=== PATIENT | female | born 1980 | race Hispanic/Latino ===

== ENCOUNTER 2017-12-09 20:36 | Emergency (ER) | payer OTHER ==
[2017-12-09] MEDS ORDERED: AZITHROMYCIN 250 MG TAB ONE (21:19)
--- NOTE | 2017-12-09 21:44 | ER ---
Nurse's Notes [facility] Name: Nyasia Houser Age: 37 yrs Sex: Female : 1980 Arrival Date: 12/09/2017 Time: 20:38 Bed 20 Private MD: Diagnosis: Acute pharyngitis Presentation: 12/09 20:41 Presenting complaint: Mother states: Sore throat for 2 days, daughter dx with strep la1 yesterday. Transition of care: patient was not received from another setting of care. Onset of symptoms was December 09, 2017. Initial Sepsis Screen: Does the patient meet any 2 criteria? No. Patient's initial sepsis screen is negative. Does the patient have a suspected source of infection? No. Patient's initial sepsis screen is negative. Care prior to arrival: None. 20:41 Method Of Arrival: Ambulatory la1 20:41 Acuity: MELISSA 4 la1 MARKER MACHINE: 20:42 LMP N/A - control method la1 Historical: - Allergies: 20:42 Codeine; la1 - PMHx: 20:42 fatty liver; shingles; la1 - Immunization history:: Adult Immunizations up to date. - Social history:: Smoking status: Patient/guardian denies using tobacco. Screenin:08 Abuse screen: Denies threats or abuse. Nutritional screening: No deficits noted. ea Tuberculosis screening: No symptoms or risk factors identified. Fall Risk None identified. Assessment: 20:50 General: Appears uncomfortable, Behavior is calm, cooperative, appropriate for age. ea Pain: Complains of pain in throat Pain currently is 8 out of 10 on a pain scale. Quality of pain is described as sore. Neuro: Level of Consciousness is awake, alert, obeys commands, Oriented to person, place, time, situation. Cardiovascular: Patient's skin is warm and dry. Respiratory: Airway is patent Respiratory effort is even, unlabored, Respiratory pattern is regular, symmetrical, Breath sounds are clear bilaterally. Parent/caregiver reports the patient having cough that is dry, hacking, persistent. GI: No signs and/or symptoms were reported involving the gastrointestinal system. Abdomen is non-distended, Bowel sounds present X 4 quads. GI: Reports nausea. : No signs and/or symptoms were reported regarding the genitourinary system. EENT: Throat is reddened. Derm: Skin is dry, Skin is normal, Skin temperature is warm. 21:55 Reassessment: Patient and/or family updated on plan of care and expected duration. Pain ea level reassessed. Patient is alert, oriented x 3, equal unlabored respirations, skin warm/dry/pink. Discharge instruction given to patient, verbalized the understanding of instruction. Vital Signs: 20:42 BP 128 / 90; Pulse 72; Resp 19; Temp 98.2(O); Pulse Ox 100% on R/A; Weight 95.25 kg; la1 Height 5 ft. 3 in. (160.02 cm); 20:54 BP 123 / 66; Pulse 79; Resp 18 S; Pulse Ox 98% on R/A; ea 21:55 BP 130 / 60; Pulse 80; Resp 18 S; Temp 98.0(O); Pulse Ox 100% ; ea 20:42 Body Mass Index 37.20 (95.25 kg, 160.02 cm) la1 ED Course: 20:38 Patient arrived in ED. ds1 20:41 Triage completed. la1 20:42 Arm band placed on left wrist. la1 20:48 [facility]adi Dupree [facility]-C [facility]. snw 20:48 Ricky Ames MD is Attending Physician. snw 20:53 Michelle Saxena RN is Primary Nurse. ea 21:08 Patient has correct armband on for positive identification. Bed in low position. Call ea light in reach. Side rails up X 1. 21:55 No provider procedures requiring assistance completed. Patient did not have IV access ea during this emergency room visit. Administered Medications: 21:24 Drug: Zithromax 500 mg Route: PO; ea 21:50 Follow up: Response: No adverse reaction ea Outcome: 21:43 Discharge ordered by MD. snw 21:55 Discharged to home ambulatory, with family. ea 21:55 Condition: improved 21:55 Discharge instructions given to patient, Instructed on discharge instructions, follow up and referral plans. medication usage, Demonstrated understanding of instructions, follow-up care, medications, Prescriptions given X 2. 21:59 Patient left the ED. ea Signatures: Yadi Dupree FNP-C CIVIL RIGHTS REPRESENTATIVE-Delores Hong ds1 Kyle Weaver RN RN phil1 Saxena, Michelle, RN RN ea Corrections: (The following items were deleted from the chart) 21:08 20:50 Respiratory: Airway is patent Respiratory effort is even, unlabored, Respiratory ea pattern is regular, symmetrical, Breath sounds are clear bilaterally. ea 22:32 22:31 Patient left the ED. julio ea
--- NOTE | 2017-12-09 21:44 | EDPHYS ---
Physician Documentation [facility] Name: Nyasia Houser Age: 37 yrs Sex: Female : 1980 Arrival Date: 12/09/2017 Time: 20:38 Bed 20 Private MD: ED Physician Ricky Ames HPI: 12/09 21:06 This 37 yrs old Female presents to ER via Ambulatory with complaints of Sore snw Throat. 21:06 The patient presents with sore throat. The patient describes throat pain as dry, raw. snw Onset: The symptoms/episode began/occurred 4 day(s) ago, and became worse and became persistent. Modifying factors: The symptoms are alleviated by nothing. Associated signs and symptoms: Pertinent positives: cough. The patient has not experienced similar symptoms in the past, but family has similar symptoms, daughter. The patient has not recently seen a physician. Daughter seen yesterday (by me) + for strep pharyngitis. 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 - Social history:: Smoking status: Patient/guardian denies using tobacco. ROS: 21:05 Constitutional: Negative for fever, chills, and weight loss, Eyes: Negative for injury, snw pain, redness, and discharge, Neck: Negative for injury, pain, and swelling, Cardiovascular: Negative for chest pain, palpitations, and edema, Respiratory: Negative for shortness of breath, wheezing, and pleuritic chest pain, + cough Abdomen/GI: Negative for abdominal pain, nausea, vomiting, diarrhea, and constipation, Back: Negative for injury and pain, : Negative for injury, bleeding, discharge, and swelling, MS/Extremity: Negative for injury and deformity, Skin: Negative for injury, rash, and discoloration, Neuro: Negative for headache, weakness, numbness, tingling, and seizure. 21:05 ENT: Positive for sore throat. Exam: 21:05 Constitutional: This is a well developed, well nourished patient who is awake, alert, snw and in no acute distress. Head/Face: Normocephalic, atraumatic. Neck: Trachea midline, no thyromegaly or masses palpated, and no cervical lymphadenopathy. Supple, full range of motion without nuchal rigidity, or vertebral point tenderness. No Meningismus. Chest/axilla: Normal chest wall appearance and motion. Nontender with no deformity. No lesions are appreciated. Cardiovascular: Regular rate and rhythm with a normal S1 and S2. No gallops, murmurs, or rubs. Normal PMI, no JVD. No pulse deficits. Respiratory: Lungs have equal breath sounds bilaterally, clear to auscultation and percussion. No rales, rhonchi or wheezes noted. No increased work of breathing, no retractions or nasal flaring. Abdomen/GI: Soft, non-tender, with normal bowel sounds. No distension or tympany. No guarding or rebound. No evidence of tenderness throughout. Back: No spinal tenderness. No costovertebral tenderness. Full range of motion. Skin: Warm, dry with normal turgor. Normal color with no rashes, no lesions, and no evidence of cellulitis. MS/ Extremity: Pulses equal, no cyanosis. Neurovascular intact. Full, normal range of motion. Neuro: Awake and alert, GCS 15, oriented to person, place, time, and situation. Cranial nerves II-XII grossly intact. Motor strength 5/5 in all extremities. Sensory grossly intact. Cerebellar exam normal. Normal gait. 21:05 Eyes: Conjunctiva: tearing noted, bilaterally. 21:05 ENT: External ear(s): are unremarkable, Nose: is normal, Mouth: is normal, Posterior pharynx: erythema, that is mild, Voice: is hoarse. Vital Signs: 20:42 BP 128 / 90; Pulse 72; Resp 19; Temp 98.2(O); Pulse Ox 100% on R/A; Weight 95.25 kg; la1 Height 5 ft. 3 in. (160.02 cm); 20:54 BP 123 / 66; Pulse 79; Resp 18 S; Pulse Ox 98% on R/A; ea 21:55 BP 130 / 60; Pulse 80; Resp 18 S; Temp 98.0(O); Pulse Ox 100% ; ea 20:42 Body Mass Index 37.20 (95.25 kg, 160.02 cm) la1 MDM: 20:48 Patient medically screened. snw 22:14 Data reviewed: vital signs, nurses notes. Data interpreted: Pulse oximetry: on room air snw is 98 %. Interpretation: normal. Counseling: I had a detailed discussion with the patient and/or guardian regarding: the historical points, exam findings, and any diagnostic results supporting the discharge/admit diagnosis, lab results, the need for outpatient follow up, to return to the emergency department if symptoms worsen or persist or if there are any questions or concerns that arise at home. Special discussion: Based on the history and exam findings, there is no indication for further emergent testing or inpatient evaluation. I discussed with the patient/guardian the need to see the primary care provider for further evaluation of the symptoms. 12/09 20:42 Order name: Strep; Complete Time: 21:43 la1 12/09 21:21 Order name: Throat Culture EDMS Administered Medications: 21:24 Drug: Zithromax 500 mg Route: PO; ea 21:50 Follow up: Response: No adverse reaction ea Disposition: 12/10 02:38 Co-signature as Attending Physician, Ricky Ames MD. rn Disposition: 12/09/17 21:43 Discharged to Home. Impression: Acute pharyngitis. - Condition is Stable. - Discharge Instructions: Fever, Adult, Pharyngitis. - Prescriptions for Tessalon Perles 100 mg Oral Capsule - take 1 capsule by ORAL route every 8 hours As needed; 15 capsule. Zithromax 500 mg Oral Tablet - take 1 tablet by ORAL route once daily for 5 days; 5 tablet. - Medication Reconciliation Form, Thank You Letter, Antibiotic Education, Prescription Opioid Use form. - Follow up: Private Physician; When: 2 - 3 days; Reason: Recheck today's complaints, Continuance of care, Re-evaluation by your physician. Follow up: Emergency Department; When: As needed; Reason: Worsening of condition. Signatures: Dispatcher [employer] EDMS Yadi Dupree, COSTUME SHOP COORDINATOR-C COSTUME SHOP COORDINATOR-Csnw Ricky Ames MD MD rn Attema, Lee RN Michelle Hancock RN RN ea
[2017-12-09 22:49] VITALS: BP 130/60; TEMP 98; O2SAT 100
== END 2017-12-09 22:31 | disposition home or self-care (01) ==
LOC: ER 20:36
DX: J02.9 Acute pharyngitis, unspecified (principal); R05 Cough; Z88.5 Allergy status to narcotic agent
CPT/HCPCS: 87070; 87081; 99283

== ENCOUNTER 2017-12-28 08:16 | Emergency (ER) | payer OTHER ==
[2017-12-28] MEDS ORDERED: NA CHLORIDE 0.9% 1,000 ML ONE (09:37)
[2017-12-28] MEDS ORDERED: ONDANSETRON 4 MG/2 ML VIAL ONE (09:38)
[2017-12-28 10:19] LABS: Absolute Lymphocytes (CBC) 1.1 K/uL (0.7-4.9); Absolute Monocytes 0.4 K/uL (0.1-1.3); Absolute Neutrophil 5.7 K/uL (1.8-8.0); Basophils % 0.3 % (0-1.3); Lymphocytes % 14.6 % (15.3-44.8); MCH 30.8 pg (27.0-35.0); MCV 92.5 fL (80-100); MPV 8.9 fL (7.6-11.3); Monocytes % 5.7 % (3.3-12.3); RBC Red Blood Cell Count 5.08 M/uL (3.86-4.86)
[2017-12-28 10:21] LABS: Urine Blood 2+ (NEG); Urine Glucose NEGATIVE (NEG); Urine Protein NEGATIVE (NEG); Urine pH 5.5 (5.0-7.0)
[2017-12-28 10:21] LABS: Urine Bacteria <20 /HPF (<20); Urine Culture Reflex Order NOT NEEDED
[2017-12-28] MEDS ORDERED: PROMETHAZINE 25 MG/ML VIAL ONE (10:21)
[2017-12-28] MEDS ORDERED: FENTANYL CITR 100 MCG/2 ML ONE (10:22)
[2017-12-28 10:26] LABS: Bicarbonate 21 mEq/L (21-31); Glucose Level 116 mg/dL (65-120); Lipase 26 U/L (22-51); Potassium 3.7 mEq/L (3.6-5.0); Sodium Level 134 mEq/L (135-145)
[2017-12-28 10:32] LABS: ALT/SGPT 48 IU/L (10-60); AST/SGOT 24 IU/L (10-42); Albumin 4.2 g/dL (3.2-5.5); Alkaline Phosphatase 81 IU/L (42-121); BUN Blood Urea Nitrogen 8 mg/dL (6-20); Bilirubin Direct 0.1 mg/dL (0-0.2); Bilirubin Total 0.8 mg/dL (0.3-1.2); Protein, Total 8.1 g/dL (6.0-8.3)
--- NOTE | 2017-12-28 11:05 | RAD REPORT ---
EXAM DESCRIPTION: CTAbdomen Pelvis W Contrast - 12/28/2017 10:53 am CLINICAL HISTORY: Abdominal pain. Nausea and vomiting, dysuria COMPARISON: None. TECHNIQUE: Biphasic CT imaging of the abdomen and pelvis was performed with 100 ml non-ionic IV cont rast. All CT scans are performed using dose optimization technique as appropriate and may include automated exposure control or mA/KV adjustment according to patient size. FINDINGS: The lung bases are clear.Cholecystectomy clips. The liver demonstrates diffuse fatty infiltration. The spleen, pancreas, adrenal glands and kidneys a re within normal limits. No bowel obstruction, free air, free fluid or abscess. The appendix is not identified as a discrete structure, however, no secondary findings of appendicitis are identified. No evidence of significan t lymphadenopathy. Sclerosis involving the SI joints bilaterally suggests sacroiliitis. 15 mm left fatty ovarian lesion, likely a dermoid. IMPRESSION: Fatty liver. Bilateral sacroiliitis.
[2017-12-28] MEDS ORDERED: KETOROLAC 30 MG/ML INJ ONE (12:48)
--- NOTE | 2017-12-28 13:48 | ER ---
Nurse's Notes [facility] Name: Nyasia Houser Age: 37 yrs Sex: Female : 1980 Arrival Date: 12/28/2017 Time: 08:20 Bed 20 Private MD: Diagnosis: Nausea and vomiting;Diarrhea, unspecified;Unspecified abdominal pain Presentation: 12/28 08:34 Presenting complaint: Patient states: generalized abd pain with N/V/D, pt also c/o aa5 lower back pain. Pt states "It also roberts when I pee". Transition of care: patient was not received from another setting of care. Onset of symptoms was December 2017. Initial Sepsis Screen: Does the patient meet any 2 criteria? HR > 90 bpm. Does the patient have a suspected source of infection? No. Patient's initial sepsis screen is negative. Care prior to arrival: None. 08:34 Method Of Arrival: Ambulatory aa5 08:34 Acuity: MELISSA 3 aa5 RESPIRATORY EQUIPMENT ASSISTANT: 08:36 LMP N/A - control method aa5 Historical: - Allergies: 08:35 Codeine; aa5 - PMHx: 08:35 fatty liver; shingles; aa5 - PSHx: 08:35 Cholecystectomy; aa5 - Immunization history:: Adult Immunizations up to date. - Social history:: Smoking status: Patient/guardian denies using tobacco. Screenin:42 Abuse screen: Denies threats or abuse. Nutritional screening: No deficits noted. aa5 Tuberculosis screening: No symptoms or risk factors identified. Fall Risk None identified. Assessment: 08:42 General: Appears comfortable, Behavior is calm, cooperative. Pain: Complains of pain in aa5 right upper quadrant, left upper quadrant, right lower quadrant, left lower quadrant, and lower back Pain does not radiate. Quality of pain is described as sharp, shooting, Pain began 2-3 days ago. Is continuous. Neuro: Level of Consciousness is awake, alert, obeys commands, Oriented to person, place, time, situation. Cardiovascular: Heart tones S1 S2 present Rhythm is regular. Respiratory: Airway is patent Respiratory effort is even, unlabored, Respiratory pattern is regular, symmetrical. GI: Abdomen is round non-distended, Bowel sounds present X 4 quads. Abd is soft and non tender X 4 quads. Reports diarrhea, nausea, vomiting. : Reports burning with urination. EENT: No signs and/or symptoms were reported regarding the EENT system. Derm: Skin is pink, warm \\T\\ dry. Musculoskeletal: Range of motion: intact in all extremities. 09:30 Reassessment: Patient appears in no apparent distress at this time. No changes from hb previously documented assessment. Patient and/or family updated on plan of care and expected duration. Pain level reassessed. Patient is alert, oriented x 3, equal unlabored respirations, skin warm/dry/pink. 10:29 Reassessment: Pt c/o headache 8/ and nausea, CIRCULATION WORKER Jayro notified, phenergan and hb fentanyl administered as ordered. 11:50 Reassessment: Patient appears in no apparent distress at this time. Patient and/or hb family updated on plan of care and expected duration. Pain level reassessed. Patient is alert, oriented x 3, equal unlabored respirations, skin warm/dry/pink. Pt resting with eyes closed, easily arouses to verbal stimuli. 12:45 Reassessment: Patient appears in no apparent distress at this time. Patient and/or hb family updated on plan of care and expected duration. Pain level reassessed. Patient is alert, oriented x 3, equal unlabored respirations, skin warm/dry/pink. 14:09 Reassessment: Patient is alert, oriented x 3, equal unlabored respirations, skin aa5 warm/dry/pink. Vital Signs: 08:36 BP 119 / 93; Pulse 105; Resp 16 S; Temp 97.7(TE); Pulse Ox 98% on R/A; Weight 95.25 kg aa5 (R); Height 5 ft. 3 in. (160.02 cm) (R); Pain 8/10; 11:27 BP 101 / 68; Pulse 92; Resp 16; Pulse Ox 98% on R/A; Pain 2/10; hb 12:40 BP 91 / 66; Pulse 88; Resp 16; Pulse Ox 100% on R/A; Pain 5/10; hb 13:29 BP 96 / 71; Pulse 82; Resp 16; Pulse Ox 100% on R/A; hb 14:08 BP 105 / 78; Pulse 80; Resp 16 S; Pulse Ox 98% on R/A; aa5 08:36 Body Mass Index 37.20 (95.25 kg, 160.02 cm) aa5 ED Course: 08:20 Patient arrived in ED. sb2 08:35 Triage completed. aa5 08:35 Arm band placed on. aa5 08:42 Patient has correct armband on for positive identification. Placed in gown. Bed in low aa5 position. Call light in reach. Side rails up X 1. 08:50 Jayro Paredes NP is PHCP. pm1 08:50 Markel Nguyễn MD is Attending Physician. pm1 08:52 Aurelia Martin, GILBERTO is Primary Nurse. aa5 09:01 No provider procedures requiring assistance completed. aa5 09:45 Inserted saline lock: 20 gauge in right antecubital area, using aseptic technique. hb Blood collected. 10:46 CT completed. Patient tolerated procedure well. Patient moved to CT via wheelchair. sw Patient moved back from CT. 10:54 CT Abd/Pelvis - W/Contrast In Process Unspecified. EDMS 13:47 Sam Gibbons MD is Referral Physician. pm1 14:09 IV discontinued, intact, bleeding controlled, No redness/swelling at site. Pressure aa5 dressing applied. Administered Medications: 09:52 Drug: NS 0.9% 1000 ml Route: IV; Rate: 1000 ml; Site: right antecubital; hb 09:52 Drug: Zofran 4 mg Route: IVP; Site: right antecubital; hb 10:30 Follow up: Response: No adverse reaction hb 10:27 Drug: fentaNYL (PF) 25 mcg Route: IVP; Site: right antecubital; hb 11:15 Follow up: Response: No adverse reaction hb 10:28 Drug: Phenergan 12.5 mg Route: IVP; Site: right antecubital; hb 11:15 Follow up: Response: No adverse reaction hb 12:46 Drug: TORadol 30 mg Route: IVP; Site: right antecubital; hb 14:09 Follow up: Response: No adverse reaction aa5 Outcome: 13:48 Discharge ordered by . pm1 14:09 Discharged to home ambulatory, with significant other. aa5 14:09 Condition: stable 14:09 Discharge instructions given to patient, Instructed on discharge instructions, follow up and referral plans. medication usage, Demonstrated understanding of instructions, follow-up care, medications, Prescriptions given X 2. 14:10 Patient left the ED. aa5 Signatures: Dispatcher [employer] EDMS Aurelia Martin RN RN aa5 Adelaida Ochoa Patrick, CIRCULATION WORKER CIRCULATION WORKER pm1 Hilda Vegas RN RN hb Martinez, Maria 5 Monserrat Bentley sb2 Corrections: (The following items were deleted from the chart) 11:52 11:27 BP 101 / 68; Pulse 92bpm; Resp 16bpm; Pulse Ox 98% RA; [facility] hb
--- NOTE | 2017-12-28 13:48 | EDPHYS ---
Physician Documentation [facility] Name: Nyasia Houser Age: 37 yrs Sex: Female : 1980 Arrival Date: 12/28/2017 Time: 08:20 Bed 20 Private MD: ED Physician Markel Nguyễn HPI: 12/28 13:45 This 37 yrs old Female presents to ER via Ambulatory with complaints of pm1 Nausea/Vomiting/Diarrhea. 13:45 The patient presents to the emergency department with nausea, vomiting, diarrhea, pm1 abdominal pain, of the suprapubic area. 13:45 Onset: The symptoms/episode began/occurred 2 day(s) ago. Possible causes: unknown. The pm1 symptoms are aggravated by nothing. The symptoms are alleviated by nothing. Associated signs and symptoms: Pertinent positives: abdominal pain, diarrhea, dysuria, nausea, vomiting, Pertinent negatives: constipation, fever. Severity of symptoms: in the emergency department the symptoms are unchanged. The patient has not recently seen a physician. Patient with left flank pain. 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 - Social history:: Smoking status: Patient/guardian denies using tobacco. ROS: 13:45 Constitutional: Negative for fever, chills, and weight loss, Eyes: Negative for injury, pm1 pain, redness, and discharge, ENT: Negative for injury, pain, and discharge, Neck: Negative for injury, pain, and swelling, Cardiovascular: Negative for chest pain, palpitations, and edema, Respiratory: Negative for shortness of breath, cough, wheezing, and pleuritic chest pain. 13:45 MS/Extremity: Negative for injury and deformity, Skin: Negative for injury, rash, and discoloration, Neuro: Negative for headache, weakness, numbness, tingling, and seizure. 13:45 Abdomen/GI: Positive for abdominal pain, nausea, vomiting, and diarrhea. 13:45 Back: Positive for flank pain. 13:45 : Positive for burning with urination. 13:45 : Positive for flank pain. Exam: 13:45 Constitutional: This is a well developed, well nourished patient who is awake, alert, pm1 and in no acute distress. Head/Face: Normocephalic, atraumatic. Eyes: Pupils equal round and reactive to light, extra-ocular motions intact. Lids and lashes normal. Conjunctiva and sclera are non-icteric and not injected. Cornea within normal limits. Periorbital areas with no swelling, redness, or edema. ENT: Nares patent. No nasal discharge, no septal abnormalities noted. Tympanic membranes are normal and external auditory canals are clear. Oropharynx with no redness, swelling, or masses, exudates, or evidence of obstruction, uvula midline. Mucous membranes moist. Neck: Trachea midline, no thyromegaly or masses palpated, and no cervical lymphadenopathy. Supple, full range of motion without nuchal rigidity, or vertebral point tenderness. No Meningismus. Chest/axilla: Normal chest wall appearance and motion. Nontender with no deformity. No lesions are appreciated. Cardiovascular: Regular rate and rhythm with a normal S1 and S2. No gallops, murmurs, or rubs. Normal PMI, no JVD. No pulse deficits. Respiratory: Lungs have equal breath sounds bilaterally, clear to auscultation and percussion. No rales, rhonchi or wheezes noted. No increased work of breathing, no retractions or nasal flaring. 13:45 Back: No spinal tenderness. No costovertebral tenderness. Full range of motion. Skin: Warm, dry with normal turgor. Normal color with no rashes, no lesions, and no evidence of cellulitis. MS/ Extremity: Pulses equal, no cyanosis. Neurovascular intact. Full, normal range of motion. 13:45 Abdomen/GI: Inspection: abdomen appears normal, Bowel sounds: normal, Palpation: soft, mild abdominal tenderness, in the suprapubic area. 13:45 Neuro: Orientation: is normal, Motor: is normal, moves all fours, Sensation: is normal, no obvious gross deficits. Vital Signs: 08:36 BP 119 / 93; Pulse 105; Resp 16 S; Temp 97.7(TE); Pulse Ox 98% on R/A; Weight 95.25 kg aa5 (R); Height 5 ft. 3 in. (160.02 cm) (R); Pain 8/10; 11:27 BP 101 / 68; Pulse 92; Resp 16; Pulse Ox 98% on R/A; Pain 2/10; hb 12:40 BP 91 / 66; Pulse 88; Resp 16; Pulse Ox 100% on R/A; Pain 5/10; hb 13:29 BP 96 / 71; Pulse 82; Resp 16; Pulse Ox 100% on R/A; hb 14:08 BP 105 / 78; Pulse 80; Resp 16 S; Pulse Ox 98% on R/A; aa5 08:36 Body Mass Index 37.20 (95.25 kg, 160.02 cm) aa5 MDM: 09:09 Patient medically screened. pm1 13:45 Special discussion: I discussed with the patient the need to follow-up with the pm1 PCP/specialist for the noted incidental finding on X-ray/CT scanning. 13:47 Data reviewed: vital signs. Data interpreted: Pulse oximetry: on room air is 100 %. pm1 Interpretation: normal. Counseling: I had a detailed discussion with the patient and/or guardian regarding: the historical points, exam findings, and any diagnostic results supporting the discharge/admit diagnosis, lab results, radiology results, the need for outpatient follow up, to return to the emergency department if symptoms worsen or persist or if there are any questions or concerns that arise at home. 12/28 09:23 Order name: Basic Metabolic Panel; Complete Time: 10:42 pm12/28 09:23 Order name: CBC with Diff; Complete Time: 10:42 pm12/28 09:23 Order name: Creatinine for Radiology; Complete Time: 10:42 pm12/28 09:23 Order name: Hepatic Function; Complete Time: 10:42 pm12/28 09:23 Order name: Lipase; Complete Time: 10:42 pm12/28 09:23 Order name: Urine Microscopic Only; Complete Time: 10:42 pm12/28 09:28 Order name: CT Abd/Pelvis - W/Contrast; Complete Time: 11:26 pm1 12/28 10:18 Order name: Urine Dipstick--Ancillary (enter results); Complete Time: 10:42 bd 12/28 10:18 Order name: Urine --Ancillary (enter results); Complete Time: 10:42 bd 12/28 09:23 Order name: Urine Test (obtain specimen); Complete Time: 10:08 pm1 12/28 09:23 Order name: IV Saline Lock; Complete Time: 09:52 pm1 12/28 09:23 Order name: Labs collected and sent; Complete Time: 09:52 pm1 12/28 09:23 Order name: Urine Dipstick-Ancillary (obtain specimen); Complete Time: 10:08 pm1 Administered Medications: 09:52 Drug: NS 0.9% 1000 ml Route: IV; Rate: 1000 ml; Site: right antecubital; hb 09:52 Drug: Zofran 4 mg Route: IVP; Site: right antecubital; hb 10:30 Follow up: Response: No adverse reaction hb 10:27 Drug: fentaNYL (PF) 25 mcg Route: IVP; Site: right antecubital; hb 11:15 Follow up: Response: No adverse reaction hb 10:28 Drug: Phenergan 12.5 mg Route: IVP; Site: right antecubital; hb 11:15 Follow up: Response: No adverse reaction hb 12:46 Drug: TORadol 30 mg Route: IVP; Site: right antecubital; hb 14:09 Follow up: Response: No adverse reaction aa5 Disposition: 12/29 06:19 Co-signature as Attending Physician, Markel Nguyễn MD. gs Disposition: 12/28/17 13:48 Discharged to Home. Impression: Nausea and vomiting, Diarrhea, unspecified, Unspecified abdominal pain. - Condition is Stable. - Discharge Instructions: Abdominal Pain, Adult, Food Choices to Help Relieve Diarrhea, Adult, Diarrhea, Nausea and Vomiting, Viral Gastroenteritis. - Prescriptions for promethazine 25 mg Oral Tablet - take 1 tablet by ORAL route every 6 hours As needed; 20 tablet. Bentyl 20 mg Oral Tablet - take 1 tablet by ORAL route every 6 hours As needed; 20 tablet. - Family Work Release, Medication Reconciliation Form, Thank You Letter form. - Follow up: Sam Gibbons MD; When: 2 - 3 days; Reason: Recheck today's complaints, Continuance of care, Re-evaluation by your physician. - Problem is new. - Symptoms have improved. Signatures: Dispatcher [employer] Aurelia Villarreal RN RN aa5 Jayro Paredes, TUCKER SEARCH ENGINE OPTIMIZATION MANAGER pm1 Hilda Vegas RN RN hb Starr, Gregory, MD MD gs Corrections: (The following items were deleted from the chart) 12/28 13:49 13:48 12/28/2017 13:48 Discharged to Home. Impression: Nausea and vomiting; Diarrhea, pm1 unspecified. Condition is Stable. Forms are Medication Reconciliation Form, Thank You Letter, Antibiotic Education, Prescription Opioid Use. Follow up: Sam Gibbons; When: 2 - 3 days; Reason: Recheck today's complaints, Continuance of care, Re-evaluation by your physician. Problem is new. Symptoms have improved. pm1 14:10 13:49 12/28/2017 13:48 Discharged to Home. Impression: Nausea and vomiting; Diarrhea, aa5 unspecified; Unspecified abdominal pain. Condition is Stable. Discharge Instructions: Food Choices to Help Relieve Diarrhea, Adult, Diarrhea, Nausea and Vomiting, Viral Gastroenteritis, Abdominal Pain, Adult. Prescriptions for promethazine 25 mg Oral Tablet - take 1 tablet by ORAL route every 6 hours As needed; 20 tablet. and Forms are Medication Reconciliation Form, Thank You Letter. Follow up: Sam Gibbons; When: 2 - 3 days; Reason: Recheck today's complaints, Continuance of care, Re-evaluation by your physician. Problem is new. Symptoms have improved. pm1
[2017-12-28 14:13] VITALS: TEMP 97.7
[2017-12-28 14:16] VITALS: O2SAT 100
[2017-12-28 14:17] VITALS: BP 96/71
== END 2017-12-28 14:10 | disposition home or self-care (01) ==
LOC: ER 08:16
DX: R19.7 Diarrhea, unspecified (principal); R10.9 Unspecified abdominal pain; Z88.5 Allergy status to narcotic agent
CPT/HCPCS: 36415; 74177; 80048; 80076; 81003; 81015; 81025; 83690; 85025; 96374; 96375; 99284; J2405; J2550; J3010; J7030; Q9967

== ENCOUNTER 2018-04-09 01:56 | Emergency (ER) | payer OTHER ==
--- NOTE | 2018-04-09 03:08 | EDPHYS ---
Physician Documentation [facility] Name: Nyasia Houser Age: 38 yrs Sex: Female : 1980 Arrival Date: 04/09/2018 Time: 02:01 Bed 5 Private MD: Sam Gibbons ED Physician Brian Han HPI: 04/09 06:42 This 38 yrs old Female presents to ER via Ambulatory with complaints of Sore tw4 Throat, Fever. 06:42 The patient presents with sore throat. The patient describes throat pain as dry, tw4 scratchy. Onset: The symptoms/episode began/occurred 2 day(s) ago. Severity of symptoms: At their worst the symptoms were moderate. Modifying factors: The symptoms are alleviated by nothing, the symptoms are aggravated by nothing. The patient has not experienced similar symptoms in the past. 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 - Social history:: Smoking status: Patient/guardian denies using tobacco. - Ebola Screening: : Patient negative for fever greater than or equal to 101.5 degrees Fahrenheit, and additional compatible Ebola Virus Disease symptoms Patient denies exposure to infectious person Patient denies travel to an Ebola-affected area in the 21 days before illness onset. ROS: 06:42 Constitutional: Negative for fever, chills, and weight loss, Eyes: Negative for injury, tw4 pain, redness, and discharge. 06:42 Cardiovascular: Negative for chest pain, palpitations, and edema, Respiratory: Negative for shortness of breath, cough, wheezing, and pleuritic chest pain, Abdomen/GI: Negative for abdominal pain, nausea, vomiting, diarrhea, and constipation, Back: Negative for injury and pain, Skin: Negative for injury, rash, and discoloration, Neuro: Negative for headache, weakness, numbness, tingling, and seizure, Psych: Negative for depression, anxiety, suicide ideation, homicidal ideation, and hallucinations. 06:42 ENT: Positive for sore throat, Negative for injury or acute deformity, drainage from ear(s), ear pain, Teeth pain tinnitus, difficulty swallowing, difficulty handling secretions. 06:42 ENT: Positive for tw4 Exam: 06:42 Constitutional: This is a well developed, well nourished patient who is awake, alert, tw4 and in no acute distress. Head/Face: Normocephalic, atraumatic. 06:42 ENT: Posterior pharynx: erythema, that is mild. Vital Signs: 02:10 BP 110 / 65; Pulse 79; Resp 18; Temp 98.3(O); Pulse Ox 99% on R/A; Weight 95.25 kg (R); fc Height 5 ft. 3 in. (160.02 cm) (R); Pain 9/10; 02:10 Body Mass Index 37.20 (95.25 kg, 160.02 cm) fc MDM: 02:16 Patient medically screened. tw4 06:42 Differential diagnosis: chlamydia pharyngitis, pharyngitis, viral syndrome. Data tw4 reviewed: vital signs, nurses notes. Data interpreted: Pulse oximetry: Interpretation: normal. Counseling: I had a detailed discussion with the patient and/or guardian regarding: the historical points, exam findings, and any diagnostic results supporting the discharge/admit diagnosis, lab results. Special discussion: I discussed with the patient/guardian in detail that at this point there is no indication for admission to the hospital. It is understood, however, that if the symptoms persist or worsen the patient needs to return immediately for re-evaluation. 04/09 02:15 Order name: Strep 04/09 02:59 Order name: Throat Culture EDMS Administered Medications: No medications were administered Disposition: 04/09/18 03:07 Discharged to Home. Impression: Viral pharyngitis. - Condition is Stable. - Discharge Instructions: Pharyngitis, [id number]. - Medication Reconciliation Form, Thank You Letter, Antibiotic Education, Prescription Opioid Use form. - Follow up: Sam Gibbons MD; When: Upon discharge from the Emergency Department; Reason: Further diagnostic work-up, Recheck today's complaints, Continuance of care. - Problem is new. - Symptoms have improved. Signatures: Dispatcher [employer] EDMS Mara Snider RN RN fc Giovana Ribera RN RN lp1 Brian Han, MD SHIELDS tw4 Corrections: (The following items were deleted from the chart) 03:20 03:07 04/09/2018 03:07 Discharged to Home. Impression: Viral pharyngitis. Condition is lp1 Stable. Forms are Medication Reconciliation Form, Thank You Letter, Antibiotic Education, Prescription Opioid Use. Follow up: Sam Gibbons; When: Upon discharge from the Emergency Department; Reason: Further diagnostic work-up, Recheck today's complaints, Continuance of care. Problem is new. Symptoms have improved. tw4
--- NOTE | 2018-04-09 03:08 | ER ---
Nurse's Notes [facility] Name: Nyasia Houser Age: 38 yrs Sex: Female : 1980 Arrival Date: 04/09/2018 Time: 02:01 Bed 5 Private MD: Sam Gibbons Diagnosis: Viral pharyngitis Presentation: 04/09 02:09 Presenting complaint: Patient states: that for the past 2 days she has had fever, sore fc throat and bilateral ear pain. Transition of care: patient was not received from another setting of care. Onset of symptoms was April 07, 2018. Risk Assessment: Do you want to hurt yourself or someone else? Patient reports no desire to harm self or others. Initial Sepsis Screen: Does the patient meet any 2 criteria? No. Patient's initial sepsis screen is negative. Does the patient have a suspected source of infection? No. Patient's initial sepsis screen is negative. Care prior to arrival: None. 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 - Social history:: Smoking status: Patient/guardian denies using tobacco. - Ebola Screening: : Patient negative for fever greater than or equal to 101.5 degrees Fahrenheit, and additional compatible Ebola Virus Disease symptoms Patient denies exposure to infectious person Patient denies travel to an Ebola-affected area in the 21 days before illness onset. Screenin:11 Abuse screen: Denies threats or abuse. Nutritional screening: No deficits noted. fc Tuberculosis screening: No symptoms or risk factors identified. Fall Risk None identified. Assessment: 02:33 General: Appears in no apparent distress. Behavior is appropriate for age. Pain: lp1 Complains of pain in throat Pain currently is 6 out of 10 on a pain scale. Neuro: No deficits noted. Cardiovascular: No deficits noted. Respiratory: Airway is patent Respiratory effort is even, unlabored, Breath sounds are clear bilaterally. GI: No deficits noted. : No deficits noted. EENT: Throat is pink. Derm: Skin is pink, warm \T\ dry. Musculoskeletal: No deficits noted. Vital Signs: 02:10 BP 110 / 65; Pulse 79; Resp 18; Temp 98.3(O); Pulse Ox 99% on R/A; Weight 95.25 kg (R); Height 5 ft. 3 in. (160.02 cm) (R); Pain 9/10; 02:10 Body Mass Index 37.20 (95.25 kg, 160.02 cm) ED Course: 02:01 Patient arrived in ED. ds1 02:01 Sam Gibbons MD is Private Physician. ds1 02:10 Triage completed. 02:10 Arm band placed on Patient placed in an exam room, on a stretcher. 02:11 Patient has correct armband on for positive identification. Bed in low position. Call light in reach. 02:16 Brian Han MD is Attending Physician. tw4 02:33 Giovana Ribera RN is Primary Nurse. lp1 03:07 Sam Gibbons MD is Referral Physician. tw4 03:20 No provider procedures requiring assistance completed. Patient did not have IV access lp1 during this emergency room visit. Administered Medications: No medications were administered Outcome: 03:07 Discharge ordered by . tw4 03:20 Discharged to home ambulatory. lp1 03:20 Condition: good 03:20 Discharge instructions given to patient, Instructed on discharge instructions, follow up and referral plans. Demonstrated understanding of instructions, follow-up care. 03:20 Patient left the ED. lp1 Signatures: Mara Snider, RN RN Delores Brownlee ds1 Giovana Ribera, RN RN lp1 Brian Han MD MD tw4
[2018-04-09 03:36] VITALS: BP 110/65; TEMP 98.3; O2SAT 99
== END 2018-04-09 03:20 | disposition home or self-care (01) ==
LOC: ER 01:56
DX: J02.9 Acute pharyngitis, unspecified (principal); Z88.5 Allergy status to narcotic agent
CPT/HCPCS: 87070; 87081; 99281

== ENCOUNTER 2018-07-09 13:27 | Emergency (ER) | payer OTHER ==
--- NOTE | 2018-07-09 16:41 | ER ---
Nurse's Notes [facility] Name: Nyasia Houser Age: 38 yrs Sex: Female : 1980 Arrival Date: 07/09/2018 Time: 13:32 Bed Hall14 Private MD: Sam Gibbons Diagnosis: Acute upper respiratory infection, unspecified;Bronchitis, not specified as acute or chronic;Acute pharyngitis Presentation: 07/09 14:16 Presenting complaint: Patient states: Headache, sinus congestion, cough, body aches, aj1 ear pain and sore throat since yesterday. Denies fever. Transition of care: patient was not received from another setting of care. Onset of symptoms was July 08, 2018. Risk Assessment: Do you want to hurt yourself or someone else? Patient reports no desire to harm self or others. Initial Sepsis Screen: Does the patient meet any 2 criteria? HR > 90 bpm. No. Patient's initial sepsis screen is negative. Does the patient have a suspected source of infection? No. Patient's initial sepsis screen is negative. Care prior to arrival: None. 14:16 Method Of Arrival: Ambulatory aj1 14:16 Acuity: MELISSA 4 aj1 Triage Assessment: 14:16 General: Appears in no apparent distress. comfortable, Behavior is calm, cooperative, aj1 appropriate for age. Pain: Pain currently is 6 out of 10 on a pain scale. Neuro: Level of Consciousness is awake, alert, obeys commands. Cardiovascular: Patient's skin is warm and dry. Respiratory: Airway is patent Respiratory effort is even, unlabored, Respiratory pattern is regular, symmetrical. 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 - Family history:: not pertinent. - Social history:: Smoking status: Patient/guardian denies using tobacco. - Ebola Screening: : No symptoms or risks identified at this time. Screenin:00 Abuse screen: Denies threats or abuse. Denies injuries from another. Nutritional ph screening: No deficits noted. Tuberculosis screening: No symptoms or risk factors identified. Fall Risk None identified. Assessment: 16:15 General: Appears in no apparent distress. comfortable, slender, well groomed, well ph developed, well nourished, Behavior is calm, cooperative, agitated. Pain: Complains of pain in right frontal area and left frontal area and forehead. Neuro: Level of Consciousness is awake, alert, obeys commands, Oriented to person, place, time, situation, Reports headache. Cardiovascular: Capillary refill < 3 seconds in bilateral fingers Patient's skin is warm and dry. Respiratory: Reports cough that is non-productive, Airway is patent Respiratory effort is even, unlabored, Respiratory pattern is regular, symmetrical, Breath sounds are clear bilaterally. GI: No signs and/or symptoms were reported involving the gastrointestinal system. EENT: Reports pain in left ear and right ear when swallowing. Derm: Skin is intact, is healthy with good turgor, Skin is pink, warm \T\ dry. Vital Signs: 14:16 BP 108 / 82; Pulse 89; Resp 20; Temp 97.2; Pulse Ox 97% on R/A; Weight 93.89 kg (R); aj1 Height 5 ft. 3 in. (160.02 cm) (R); Pain 6/10; 16:15 BP 112 / 78; Pulse 81; Resp 18; Temp 98.0; Pulse Ox 99% on R/A; ph 14:16 Body Mass Index 36.67 (93.89 kg, 160.02 cm) [facility] ED Course: 13:32 Patient arrived in ED. mr 13:32 Sam Gibbons MD is Private Physician. mr 14:16 Triage completed. [facility] 14:16 Arm band placed on Patient placed in waiting room, Patient notified of wait time. aj 16:00 Patient has correct armband on for positive identification. Bed in low position. Call ph light in reach. Side rails up X 1. 16:02 Roberto Andersen MD is Attending Physician. [facility] 16:39 Sam Gibbons MD is Referral Physician. [facility] 16:48 Lula Sandoval, GILBERTO is Primary Nurse. ph 16:52 Throat Culture Sent. 17:00 No provider procedures requiring assistance completed. Patient did not have IV access ph during this emergency room visit. Administered Medications: 17:04 Not Given (Other Intervention Used): Zithromax 500 mg PO once ph Outcome: 16:40 Discharge ordered by . corby 17:05 Patient left the ED. ph 17:05 Discharged to home ambulatory. ph 17:05 Condition: good 17:05 Discharge instructions given to patient, Instructed on discharge instructions, follow up and referral plans. medication usage, Demonstrated understanding of instructions, follow-up care, medications, Prescriptions given X 3. Signatures: Anel Clements RN RN aj1 Roberto Andersen MD MD cha Rivera, Mitali mr Josette Schmid RN RN Lula Sandoval RN RN
--- NOTE | 2018-07-09 16:41 | EDPHYS ---
Physician Documentation [facility] Name: Nyasia Houser Age: 38 yrs Sex: Female : 1980 Arrival Date: 07/09/2018 Time: 13:32 Bed Hall14 Private MD: Sam Gibbons ED Physician Roberto Andersen HPI: 07/09 16:36 This 38 yrs old Female presents to ER via Ambulatory with complaints of corby Congestion, Headache, Ear Pain, Sore Throat. 16:36 The patient complains of pain to the forehead, left frontal area and right frontal corby area. Onset: The symptoms/episode began/occurred 2 day(s) ago. 16:37 The patient or guardian reports cough, that is constant, flu symptoms. Onset: The corby symptoms/episode began/occurred 3 day(s) ago. Modifying factors: The symptoms are alleviated by nothing. the symptoms are aggravated by nothing. Associated signs and symptoms: The patient has no apparent associated signs or symptoms. Severity of symptoms: At its worst the pain was mild, moderate, in the emergency department the pain has improved, moderately. The patient or guardian reports airway noise, hoarse voice. [employer] WREST[employer]ER: 14:16 LMP N/A - control method aj1 Historical: - Allergies: 14:16 Codeine; aj1 - PMHx: 14:16 fatty liver; shingles; aj1 - Immunization history:: Adult Immunizations unknown. - Family history:: not pertinent. - Social history:: Smoking status: Patient/guardian denies using tobacco. - Ebola Screening: : No symptoms or risks identified at this time. ROS: 16:37 Constitutional: Negative for fever, chills, and weight loss, Eyes: Negative for injury, corby pain, redness, and discharge, Neck: Negative for injury, pain, and swelling, Cardiovascular: Negative for chest pain, palpitations, and edema, Abdomen/GI: Negative for abdominal pain, nausea, vomiting, diarrhea, and constipation, Back: Negative for injury and pain, : Negative for injury, bleeding, discharge, and swelling, MS/Extremity: Negative for injury and deformity, Skin: Negative for injury, rash, and discoloration, Neuro: Negative for headache, weakness, numbness, tingling, and seizure, Psych: Negative for depression, anxiety, suicide ideation, homicidal ideation, and hallucinations, Allergy/Immunology: Negative for hives, rash, and allergies, Endocrine: Negative for neck swelling, polydipsia, polyuria, polyphagia, and marked weight changes, Hematologic/Lymphatic: Negative for swollen nodes, abnormal bleeding, and unusual bruising. 16:37 ENT: Positive for rhinorrhea, sore throat. 16:37 Respiratory: Positive for cough, with yellow sputum. 16:37 Respiratory: Positive for 16:37 MS/extremity: Exam: 16:38 Constitutional: This is a well developed, well nourished patient who is awake, alert, corby and in no acute distress. Head/Face: Normocephalic, atraumatic. Eyes: Pupils equal round and reactive to light, extra-ocular motions intact. Lids and lashes normal. Conjunctiva and sclera are non-icteric and not injected. Cornea within normal limits. Periorbital areas with no swelling, redness, or edema. Neck: Trachea midline, no thyromegaly or masses palpated, and no cervical lymphadenopathy. Supple, full range of motion without nuchal rigidity, or vertebral point tenderness. No Meningismus. Chest/axilla: Normal chest wall appearance and motion. Nontender with no deformity. No lesions are appreciated. Cardiovascular: Regular rate and rhythm with a normal S1 and S2. No gallops, murmurs, or rubs. Normal PMI, no JVD. No pulse deficits. Respiratory: Lungs have equal breath sounds bilaterally, clear to auscultation and percussion. No rales, rhonchi or wheezes noted. No increased work of breathing, no retractions or nasal flaring. Abdomen/GI: Soft, non-tender, with normal bowel sounds. No distension or tympany. No guarding or rebound. No evidence of tenderness throughout. Back: No spinal tenderness. No costovertebral tenderness. Full range of motion. Skin: Warm, dry with normal turgor. Normal color with no rashes, no lesions, and no evidence of cellulitis. MS/ Extremity: Pulses equal, no cyanosis. Neurovascular intact. Full, normal range of motion. Neuro: Awake and alert, GCS 15, oriented to person, place, time, and situation. Cranial nerves II-XII grossly intact. Motor strength 5/5 in all extremities. Sensory grossly intact. Cerebellar exam normal. Normal gait. Psych: Awake, alert, with orientation to person, place and time. Behavior, mood, and affect are within normal limits. 16:38 ENT: Posterior pharynx: Tonsils: bilaterally enlarged, with erythema, Uvula: normal, midline, swelling, that is mild, erythema, that is mild, exudate, is not appreciated. 16:38 Neck: ROM/movement: is normal, no acute changes, Meningeal signs: are not present, Kernig's sign is negative, Brudzinski's sign is negative. Vital Signs: 14:16 BP 108 / 82; Pulse 89; Resp 20; Temp 97.2; Pulse Ox 97% on R/A; Weight 93.89 kg (R); [facility] Height 5 ft. 3 in. (160.02 cm) (R); Pain 6/10; 16:15 BP 112 / 78; Pulse 81; Resp 18; Temp 98.0; Pulse Ox 99% on R/A; ph 14:16 Body Mass Index 36.67 (93.89 kg, 160.02 cm) [facility] MDM: 16:02 Patient medically screened. [facility] 07/09 14:18 Order name: Flu; Complete Time: 16:24 [facility] 07/09 14:18 Order name: Strep; Complete Time: 16:24 [facility] 07/09 15:08 Order name: Throat Culture EDMS Administered Medications: 17:04 Not Given (Other Intervention Used): Zithromax 500 mg PO once ph Disposition: 07/09/18 16:40 Discharged to Home. Impression: Acute upper respiratory infection, unspecified, Bronchitis, not specified as acute or chronic, Acute pharyngitis. - Condition is Stable. - Discharge Instructions: Acute Bronchitis, Adult, Pharyngitis, Upper Respiratory Infection, Adult, Cool Mist Vaporizer, Upper Respiratory Infection, Adult, [id number], Pharyngitis, Odqr-[id number], Cough, Adult, Sore Throat, [id number]. - Prescriptions for Bromfed DM 2- 30-10 mg/5 mL Oral syrup - take 10 milliliter by ORAL route every 4 hours; 160 milliliter. Pat- D 12 Hour 60-120 mg Oral Tablet Sustained Release 12 hr - take 1 tablet by ORAL route every 12 hours As needed; 20 tablet. Zithromax Z- Stephen 250 mg Oral Tablet - take 1 tablet by ORAL route as directed for 5 days Day 1 - take two (2) tablets one time. Day 2, 3, 4 , 5 take one (1) tablet once daily.; 6 tablet. - Medication Reconciliation Form, Thank You Letter, Antibiotic Education, Prescription Opioid Use form. - Follow up: Sam Gibbons MD; When: 2 - 3 days; Reason: Recheck today's complaints, Continuance of care, Re-evaluation by your physician. - Problem is new. - Symptoms have improved. Signatures: Dispatcher [employer] EDAnel Lopez RN RN aj1 Roberto Andersen MD MD cha Hall, Patricia, RN RN ph Corrections: (The following items were deleted from the chart) 17:05 16:40 07/09/2018 16:40 Discharged to Home. Impression: Acute upper respiratory ph infection, unspecified; Bronchitis, not specified as acute or chronic; Acute pharyngitis. Condition is Stable. Forms are Medication Reconciliation Form, Thank You Letter, Antibiotic Education, Prescription Opioid Use. Follow up: Sam Gibbons; When: 2 - 3 days; Reason: Recheck today's complaints, Continuance of care, Re-evaluation by your physician. Problem is new. Symptoms have improved. corby
[2018-07-09 17:30] VITALS: BP 108/82; TEMP 97.2; O2SAT 97
== END 2018-07-09 17:05 | disposition home or self-care (01) ==
LOC: ER 13:27
DX: J40 Bronchitis, not specified as acute or chronic (principal); J06.9 Acute upper respiratory infection, unspecified; Z88.5 Allergy status to narcotic agent
CPT/HCPCS: 87070; 87081; 87804; 99283

== ENCOUNTER 2018-09-02 23:00 | Emergency (ER) | payer OTHER ==
[2018-09-02] MEDS ORDERED: NA CHLORIDE 0.9% 1,000 ML ONE (23:26)
[2018-09-02] MEDS ORDERED: ONDANSETRON 4 MG/2 ML VIAL ONE ×2 (23:26→23:54)
[2018-09-02 23:39] LABS: Absolute Monocytes 0.8 K/uL (0.1-1.3); Basophils % 0.6 % (0-1.3); Eosinophils % 1.2 % (0-4.4); Hematocrit 45.2 % (36.0-45.0); Lymphocytes % 15.1 % (15.3-44.8); MPV 8.6 fL (7.6-11.3); Monocytes % 6.4 % (3.3-12.3)
[2018-09-02 23:53] LABS: Albumin 3.8 g/dL (3.4-5.0); Bilirubin Direct 0.1 mg/dL (0-0.2); Bilirubin Total 0.3 mg/dL (0.2-1.0); Potassium 3.4 mmol/L (3.5-5.1); Protein, Total 8.1 g/dL (6.4-8.2)
[2018-09-03 00:03] LABS: Urine Bacteria <20 /HPF (<20); Urine Culture Reflex Order NOT NEEDED; Urine RBC <5 /HPF (NONE SEEN)
[2018-09-03] MEDS ORDERED: LORAZEPAM 1 MG TABLET ONE ×2 (02:08→02:10)
--- NOTE | 2018-09-03 04:24 | EDPHYS ---
Physician Documentation [facility] Name: Nyasia Houser Age: 38 yrs Sex: Female : 1980 Arrival Date: 09/02/2018 Time: 23:02 Bed 6 Private MD: KENNEDY Physician Brian Han Historical: - Allergies: 09/02 23:15 Codeine; ak1 - Home Meds: 23:15 None [Active]; ak1 - PMHx: 23:15 fatty liver; shingles; ak1 - PSHx: 23:15 Cholecystectomy; ovarian cyst removal; ak1 - Immunization history:: Adult Immunizations unknown. - Social history:: Smoking status: Patient/guardian denies using tobacco, Patient/guardian denies using alcohol. - Ebola Screening: : No symptoms or risks identified at this time. Vital Signs: 23:12 BP 134 / 89; Pulse 113; Resp 16; Temp 98.7(O); Pulse Ox 97% on R/A; Weight 113.4 kg ak1 (R); Height 5 ft. 2 in. (157.48 cm) (R); Pain 10/10; 09/03 01:33 BP 100 / 80; Pulse 103; Resp 16; Pulse Ox 99% on R/A; ed1 09/02 23:12 Body Mass Index 45.73 (113.40 kg, 157.48 cm) [facility] MDM: 09/02 23:08 Patient medically screened. [facility] 09/02 23:09 Order name: Basic Metabolic Panel [facility] 09/02 23:09 Order name: CBC with Diff [facility] 09/02 23:09 Order name: Creatinine for Radiology [facility] 09/02 23:09 Order name: Hepatic Function [facility] 09/02 23:09 Order name: Lipase [facility] 09/02 23:09 Order name: Urine Microscopic Only [facility] 09/02 23:17 Order name: Urine Dipstick--Ancillary (enter results) [facility] 09/02 23:17 Order name: Urine --Ancillary (enter results) [facility] 09/03 00:16 Order name: CT Abd/Pelvis - W/Contrast: no po contrast!! [facility] 09/02 23:09 Order name: IV Saline Lock; Complete Time: 23:29 [facility] 09/02 23:09 Order name: Labs collected and sent; Complete Time: 23:28 tw4 09/02 23:09 Order name: Urine Dipstick-Ancillary (obtain specimen); Complete Time: 23:24 tw4 09/02 23:09 Order name: Urine Test (obtain specimen); Complete Time: 23:24 tw4 Administered Medications: 23:24 Drug: NS 0.9% 1000 ml Route: IV; Rate: 1 bolus; Site: left antecubital; ed1 09/03 02:11 Follow up: IV Status: Completed infusion; IV Intake: 1000ml ed1 09/02 23:24 Drug: Zofran 4 mg Route: IVP; Site: left antecubital; ed1 23:54 Follow up: Response: No adverse reaction; Nausea unchanged ed1 23:48 Drug: Zofran 4 mg Route: IVP; Site: left antecubital; jd3 09/03 01:39 Follow up: Response: No adverse reaction; Nausea is decreased ed1 01:40 Not Given (Patient Refused): Phenergan 12.5 mg IVP once ed1 02:06 Drug: Ativan 1 mg Route: PO; ed1 02:11 Follow up: Response: Medication administered at discharge. ed1 Disposition: 09/03/18 01:54 Discharged to Home. Impression: Gastroduodenitis, unspecified, without bleeding. - Condition is Stable. - Discharge Instructions: Gastritis, Adult, Nausea and Vomiting, Adult, [id number]-[id number]. - Prescriptions for Zofran 4 mg Oral Tablet - take 1 tablet by ORAL route every 12 hours As needed; 20 tablet. - Family Work Release, Medication Reconciliation Form, Thank You Letter, Antibiotic Education, Prescription Opioid Use form. - Follow up: Private Physician; When: Upon discharge from the Emergency Department; Reason: Recheck today's complaints, Continuance of care. - Problem is new. - Symptoms have improved. Addendum: 10/08/2018 06:12 Addendum: HPI: Pt is a 38 year old female that comes to the Ed with history of t w4 headaches intermittently for one week. Pt also complains of diarrhea for one week. Comes to the ED with complaint of vomiting for two days. Pt denies abdominal pain. Addendum: ROS: Constitutional: denies fever chills, malaise ENT: denies sore throat, ear pain Resp: denies SOB, NICOLE, cough CV: denies chest pain, palpitations, edema Abdomen: positive for nausea vomiting diarrhea negative for abdominal pain Ext; negative for injury,edema, pain Neuro:positive for headache, negative for numbness, weakness, parasthesias. Addendum: PE: General: well developed female in NAD HEENT: EOMI, pharynx normal Neck: supple, no meningeal signs Resp: CTAB, no resp distress, CV: RRR, nl S1, S2 no murmurs no gallops Ext: no edema, nontender Neuro: alert and oriented times three, CN grossly intact, moves all fours. 06:22 Addendum: ED course: Pt labs and imaging studies negative for etiology of patients t w4 symptoms. Pt received Zofran states she feels better . Signatures: Dispatcher [employer] EDMS Tiffani Millan, RN RN ed1 Arianna Mondragon RN RN ak1 Bal Wick RN RN Brian Oliva MD MD tw4 Corrections: (The following items were deleted from the chart) 09/03 02:25 01:54 09/03/2018 01:54 Discharged to Home. Impression: Gastroduodenitis, unspecified, ed1 without bleeding. Condition is Stable. Forms are Medication Reconciliation Form, Thank You Letter, Antibiotic Education, Prescription Opioid Use. Follow up: Private Physician; When: Upon discharge from the Emergency Department; Reason: Recheck today's complaints, Continuance of care. Problem is new. Symptoms have improved. tw4
--- NOTE | 2018-09-03 04:24 | ER ---
Nurse's Notes [facility] Name: Nyasia Houser Age: 38 yrs Sex: Female : 1980 Arrival Date: 09/02/2018 Time: 23:02 Bed 6 Private MD: Diagnosis: Gastroduodenitis, unspecified, without bleeding Presentation: 09/02 23:13 Presenting complaint: Patient states: throbbing pain to back of her head increased ak1 tonight. pt with headaches intermittent X1 week. pt stated she had diarrhea last week and now vomiting X2 days. Transition of care: patient was not received from another setting of care. Onset of symptoms is unknown. Risk Assessment: Do you want to hurt yourself or someone else? Patient reports no desire to harm self or others. Initial Sepsis Screen: Does the patient meet any 2 criteria? No. Patient's initial sepsis screen is negative. Does the patient have a suspected source of infection? No. Patient's initial sepsis screen is negative. Care prior to arrival: Excedrin at 2030. 23:13 Acuity: MELISSA 3 ak1 23:13 Method Of Arrival: Ambulatory ak1 Triage Assessment: 23:15 General: Appears uncomfortable, Behavior is calm, cooperative. ak1 Historical: - Allergies: 23:15 Codeine; ak1 - Home Meds: 23:15 None [Active]; ak1 - PMHx: 23:15 fatty liver; shingles; ak1 - PSHx: 23:15 Cholecystectomy; ovarian cyst removal; ak1 - Immunization history:: Adult Immunizations unknown. - Social history:: Smoking status: Patient/guardian denies using tobacco, Patient/guardian denies using alcohol. - Ebola Screening: : No symptoms or risks identified at this time. Screenin:24 Abuse screen: Denies threats or abuse. Denies injuries from another. Nutritional ed1 screening: No deficits noted. Tuberculosis screening: No symptoms or risk factors identified. Fall Risk None identified. Assessment: 23:24 General: Appears uncomfortable, Behavior is calm, cooperative. Pain: Complains of pain ed1 in head Pain does not radiate. Pain currently is 10 out of 10 on a pain scale. Quality of pain is described as throbbing. Neuro: Level of Consciousness is awake, alert, obeys commands, Oriented to person, place, time, situation, Reports blurred vision headache in entire parietal area, frontal area, occipital area. Cardiovascular: Denies chest pain, Heart tones S1 S2 present. Respiratory: Airway is patent Respiratory effort is even, unlabored, Respiratory pattern is regular, symmetrical, Breath sounds are clear bilaterally. GI: Abdomen is non-distended, Bowel sounds present X 4 quads. Abd is soft and non tender X 4 quads. Reports diarrhea, nausea. : No signs and/or symptoms were reported regarding the genitourinary system. EENT: No signs and/or symptoms were reported regarding the EENT system. Derm: Skin is intact, is healthy with good turgor, Skin is dry, Skin is normal, Skin temperature is warm. Musculoskeletal: Circulation, motion, and sensation intact. 09/03 00:02 Reassessment: Pt. reports feeling of "insides buring," nausea, and anxiety. Dr. Han ed1 notified. No new orders received. 01:33 Reassessment: Patient appears in no apparent distress at this time. Patient and/or ed1 family updated on plan of care and expected duration. Pain level reassessed. Patient is alert, oriented x 3, equal unlabored respirations, skin warm/dry/pink. Pt states "I don't really have a headache anymore but I still feel that burning and I am very anxious. Do you think I can get something for that.?". Vital Signs: 09/02 23:12 BP 134 / 89; Pulse 113; Resp 16; Temp 98.7(O); Pulse Ox 97% on R/A; Weight 113.4 kg ak1 (R); Height 5 ft. 2 in. (157.48 cm) (R); Pain 10/10; 09/03 01:33 BP 100 / 80; Pulse 103; Resp 16; Pulse Ox 99% on R/A; ed1 09/02 23:12 Body Mass Index 45.73 (113.40 kg, 157.48 cm) ak1 ED Course: 09/02 23:02 Patient arrived in ED. al2 23:08 Brian Han MD is Attending Physician. tw4 23:12 Tiffani Millan, RN is Primary Nurse. ed1 23:12 Arm band placed on Patient placed in an exam room, on a stretcher, on pulse oximetry, ak1 Patient notified of wait time. 23:14 Triage completed. ak1 23:24 Patient has correct armband on for positive identification. Placed in gown. Bed in low ed1 position. Call light in reach. Side rails up X2. Adult w/ patient. Pulse ox on. NIBP on. Door closed. Noise minimized. Lights dimmed. Warm blanket given. 23:31 Inserted saline lock: 20 gauge in left antecubital area, using aseptic technique. Blood oe collected. 09/03 01:02 Patient moved to [place] via wheelchair. kw1 01:21 CT completed. Patient tolerated procedure well. Patient moved back from [place]. kw1 02:08 No provider procedures requiring assistance completed. IV discontinued, intact, ed1 bleeding controlled, No redness/swelling at site. Pressure dressing applied. Administered Medications: 09/02 23:24 Drug: NS 0.9% 1000 ml Route: IV; Rate: 1 bolus; Site: left antecubital; ed1 09/03 02:11 Follow up: IV Status: Completed infusion; IV Intake: 1000ml ed1 09/02 23:24 Drug: Zofran 4 mg Route: IVP; Site: left antecubital; ed1 23:54 Follow up: Response: No adverse reaction; Nausea unchanged ed1 23:48 Drug: Zofran 4 mg Route: IVP; Site: left antecubital; jd3 09/03 01:39 Follow up: Response: No adverse reaction; Nausea is decreased ed1 01:40 Not Given (Patient Refused): Phenergan 12.5 mg IVP once ed1 02:06 Drug: Ativan 1 mg Route: PO; ed1 02:11 Follow up: Response: Medication administered at discharge. ed1 Intake: 02:11 IV: 1000ml; Total: 1000ml. ed1 Outcome: 01:54 Discharge ordered by . tw4 02:08 Discharged to home ambulatory. ed1 02:08 Condition: good 02:08 Discharge instructions given to patient, Instructed on discharge instructions, follow up and referral plans. medication usage, Demonstrated understanding of instructions, follow-up care, medications, Prescriptions given X 1. 02:25 Patient left the ED. ed1 Signatures: Tiffani Millan RN RN ed1 Arianna Mondragon RN RN ak1 Alexander Mitchell Jonathon, RN RN jd3 Melba Toribio kw1 Melanie Westfall al2 Brian Han MD MD tw4 Corrections: (The following items were deleted from the chart) 01:37 01:33 Reassessment: Patient appears in no apparent distress at this time. Patient ed1 and/or family updated on plan of care and expected duration. Pain level reassessed. Patient is alert, oriented x 3, equal unlabored respirations, skin warm/dry/pink. Patient states feeling better. Patient states symptoms have improved. ed1
[2018-09-03 04:30] LABS: Urine Blood 1+ (NEG); Urine Glucose NEGATIVE (NEG); Urine Protein NEGATIVE (NEG); Urine pH 6.5 (5.0-7.0)
[2018-09-03 04:44] VITALS: TEMP 98.7
[2018-09-03 04:45] VITALS: BP 100/80; O2SAT 99
--- NOTE | 2018-09-03 08:01 | RAD REPORT ---
EXAM DESCRIPTION: CTAbdomen Pelvis W Contrast - 09/03/2018 6:56 am CLINICAL HISTORY: Abdominal pain. pain COMPARISON: Abdomen Pelvis W Contrast dated 12/28/2017; Abdomen Pelvis W Contrast dated 02/07/2017 ; Abdomen Pelvis W Contrast dated 04/01/2016 TECHNIQUE: Biphasic CT imaging of the abdomen and pelvis was performed with 100 ml non-ionic IV cont rast. All CT scans are performed using dose optimization technique as appropriate and may include automated exposure control or mA/KV adjustment according to patient size. FINDINGS: The lung bases are clear.Cholecystectomy clips. The liver, spleen, pancreas, adrenal glands and kidneys are within normal limits. No bowel obstruction, free air, free fluid or abscess. The appendix is normal. No evidence of signi ficant lymphadenopathy. No suspicious bony findings. IMPRESSION: No acute intra-abdominal or pelvic finding.
== END 2018-09-03 02:25 | disposition home or self-care (01) ==
LOC: ER 23:00
DX: K29.90 Gastroduodenitis, unspecified, without bleeding (principal); Z88.5 Allergy status to narcotic agent
CPT/HCPCS: 36415; 74177; 80048; 80076; 81003; 81015; 81025; 83690; 85025; 96361; 96374; 99284; J2405; J7030; Q9967

== ENCOUNTER 2018-10-25 17:40 | Emergency (ER) | payer OTHER ==
--- OUTSIDE RECORDS SUMMARY | 2018-10-25 17:42 | XMS REPORT ---
:1980 [facility] Address [address] [place] [address] Care Team Providers Name Role Phone Unavailable Unavailable Unavailable Problems This patient has no known problems. Allergies, Adverse Reactions, Alerts This patient has no known allergies or adverse reactions. Medications This patient has no known medications.
[2018-10-25] MEDS ORDERED: NA CHLORIDE 0.9% 1,000 ML ONE (18:28)
[2018-10-25] MEDS ORDERED: ONDANSETRON 4 MG/2 ML VIAL ONE (18:28)
[2018-10-25 18:42] LABS: Absolute Lymphocytes (CBC) 2.1 K/uL (0.7-4.9); Absolute Monocytes 0.6 K/uL (0.1-1.3); Absolute Neutrophil 5.1 K/uL (1.8-8.0); Basophils % 0.7 % (0-1.3); Eosinophils % 1.7 % (0-4.4); Hematocrit 42.6 % (36.0-45.0); Lymphocytes % 26.4 % (15.3-44.8); MPV 8.1 fL (7.6-11.3); Monocytes % 7.3 % (3.3-12.3); RBC Red Blood Cell Count 4.55 M/uL (3.86-4.86)
[2018-10-25 18:48] LABS: Potassium 3.5 mmol/L (3.5-5.1)
[2018-10-25 18:53] LABS: Urine Blood 2+ (NEG); Urine Glucose NEGATIVE (NEG); Urine Protein NEGATIVE (NEG); Urine Specific Gravity 1.015 (1.005-1.030)
--- NOTE | 2018-10-25 20:19 | EDPHYS ---
Physician Documentation [facility] Name: Nyasia Houser Age: 38 yrs Sex: Female : 1980 Arrival Date: 10/25/2018 Time: 17:43 Bed 6 Private MD: ED Physician Roberto Andersen HPI: 10/25 19:32 This 38 yrs old Female presents to ER via Ambulatory with complaints of kb Nausea/Vomiting/Diarrhea, Blood Pressure Problem, Dizziness. 19:32 The patient presents to the emergency department with nausea, diarrhea. Onset: The kb symptoms/episode began/occurred 2 week(s) ago. Possible causes: antibiotics, penicillin, augmentin. The symptoms are aggravated by nothing. The symptoms are alleviated by nothing. Associated signs and symptoms: Pertinent positives: diarrhea, nausea. Severity of symptoms: At their worst the symptoms were moderate in the emergency department the symptoms are unchanged. The patient has not experienced similar symptoms in the past. The patient has been recently seen at an urgent care, today. Pt reports she has had 2 rounds of antibiotics for sinus infections and it caused her to have a lot of diarrhea. Also reports nausea. States she has been lightheaded lately so she thinks she is dehydrated because of all of the diarrhea. Went back to today and they told her her blood pressure was low so she should come to the ER. ADMIN DIR: 18:03 LMP 08/27/2018 hj Historical: - Allergies: 17:48 Codeine; sv - PMHx: 17:48 fatty liver; shingles; sv - PSHx: 17:48 Cholecystectomy; ovarian cyst removal; sv - Immunization history:: Adult Immunizations up to date. - Social history:: Smoking status: Patient/guardian denies using tobacco, Patient/guardian denies using alcohol. - Ebola Screening: : Patient negative for fever greater than or equal to 101.5 degrees Fahrenheit, and additional compatible Ebola Virus Disease symptoms Patient denies exposure to infectious person Patient denies travel to an Ebola-affected area in the 21 days before illness onset. ROS: 19:31 Constitutional: Negative for fever, chills, and weight loss, ENT: Negative for injury, kb pain, and discharge, Neck: Negative for injury, pain, and swelling, Cardiovascular: Negative for chest pain, palpitations, and edema, Respiratory: Negative for shortness of breath, cough, wheezing, and pleuritic chest pain, Back: Negative for injury and pain, MS/Extremity: Negative for injury and deformity, Skin: Negative for injury, rash, and discoloration. 19:31 Abdomen/GI: Positive for nausea, diarrhea, Negative for abdominal pain, vomiting, constipation, abdominal cramps, abdominal distension, anorexia. 19:31 Neuro: Positive for lightheadedness. Exam: 19:32 Constitutional: This is a well developed, well nourished patient who is awake, alert, kb and in no acute distress. Head/Face: Normocephalic, atraumatic. ENT: Nares patent. No nasal discharge, no septal abnormalities noted. Tympanic membranes are normal and external auditory canals are clear. Oropharynx with no redness, swelling, or masses, exudates, or evidence of obstruction, uvula midline. Mucous membranes moist. Neck: Trachea midline, no thyromegaly or masses palpated, and no cervical lymphadenopathy. Supple, full range of motion without nuchal rigidity, or vertebral point tenderness. No Meningismus. Chest/axilla: Normal chest wall appearance and motion. Nontender with no deformity. No lesions are appreciated. Cardiovascular: Regular rate and rhythm with a normal S1 and S2. No gallops, murmurs, or rubs. Normal PMI, no JVD. No pulse deficits. Respiratory: Lungs have equal breath sounds bilaterally, clear to auscultation and percussion. No rales, rhonchi or wheezes noted. No increased work of breathing, no retractions or nasal flaring. Abdomen/GI: Soft, non-tender, with normal bowel sounds. No distension or tympany. No guarding or rebound. No evidence of tenderness throughout. Skin: Warm, dry with normal turgor. Normal color with no rashes, no lesions, and no evidence of cellulitis. MS/ Extremity: Pulses equal, no cyanosis. Neurovascular intact. Full, normal range of motion. Neuro: Awake and alert, GCS 15, oriented to person, place, time, and situation. Cranial nerves II-XII grossly intact. Motor strength 5/5 in all extremities. Sensory grossly intact. Cerebellar exam normal. Normal gait. Vital Signs: 17:48 BP 127 / 66; Pulse 120; Resp 22; Temp 97.6; Pulse Ox 100% ; Weight 92.53 kg; Height 5 sv ft. 2 in. (157.48 cm); Pain 0/10; 18:03 BP 123 / 80 Supine; Pulse 122; Resp 18; Pulse Ox 100% on R/A; hj 18:03 BP 118 / 75 Sitting; Pulse 125; Resp 18; Pulse Ox 99% on R/A; hj 18:03 BP 126 / 90 Standing; Pulse 124; Resp 18; Pulse Ox 100% on R/A; hj 19:18 BP 102 / 80; Pulse 101; Resp 18 S; Pulse Ox 98% on R/A; hj 20:35 BP 105 / 77; Pulse 96; Resp 16 S; Pulse Ox 99% on R/A; jd3 17:48 Body Mass Index 37.31 (92.53 kg, 157.48 cm) sv MDM: 17:53 Patient medically screened. kb 19:32 Data reviewed: vital signs, nurses notes. Data interpreted: Pulse oximetry: on room air kb is 98 %. Interpretation: normal. 19:36 Counseling: I had a detailed discussion with the patient and/or guardian regarding: the kb historical points, exam findings, and any diagnostic results supporting the discharge/admit diagnosis, lab results, the need for outpatient follow up, a family practitioner, to return to the emergency department if symptoms worsen or persist or if there are any questions or concerns that arise at home. 10/25 18:12 Order name: Basic Metabolic Panel; Complete Time: 18:49 kb 10/25 18:12 Order name: CBC with Diff; Complete Time: 18:54 kb 10/25 18:18 Order name: Urine Dipstick--Ancillary (enter results) 10/25 18:18 Order name: Urine --Ancillary (enter results) 10/25 18:56 Order name: Flu; Complete Time: 19:53 kb 10/25 17:53 Order name: Orthostatics; Complete Time: 18:03 kb 10/25 17:53 Order name: Urine Dipstick-Ancillary (obtain specimen); Complete Time: 18:11 kb 10/25 18:12 Order name: IV Saline Lock; Complete Time: 18:26 kb 10/25 18:12 Order name: Labs collected and sent; Complete Time: 18:26 kb Administered Medications: 18:20 Drug: NS 0.9% 1000 ml Route: IV; Rate: 1000 ml; Site: right antecubital; hj 18:52 Follow up: IV Status: Infusion continued hj 18:20 Drug: Zofran 4 mg Route: IVP; Site: right antecubital; 18:51 Follow up: Response: No adverse reaction; Nausea is decreased Disposition: 10/25/18 20:19 Discharged to Home. Impression: Diarrhea, unspecified, Nausea. - Condition is Stable. - Discharge Instructions: Food Choices to Help Relieve Diarrhea, Adult, Diarrhea, Adult, [id number]. - Prescriptions for Zofran 4 mg Oral Tablet - take 1 tablet by ORAL route every 6 hours As needed; 20 tablet. - Medication Reconciliation Form, Thank You Letter, Antibiotic Education, Prescription Opioid Use form. - Follow up: Emergency Department; When: As needed; Reason: Worsening of condition. Follow up: Private Physician; When: 2 - 3 days; Reason: Recheck today's complaints, Continuance of care, Re-evaluation by your physician. Addendum: 10/28/2018 07:14 Co-signature as Attending Physician, Roberto Andersen MD I agree with the assessment and c frost plan of care. Signatures: Dispatcher [employer] EDNY Yasmeen Matthews, GRAY-C CHILD AND FAMILY SERVICES WORKER-Ericka Carr RN RN sv Anderson, Corey, MD MD cha Joaquin, Henry RN RN Bal Minor RN RN jd3 Corrections: (The following items were deleted from the chart) 10/25 20:35 20:19 10/25/2018 20:19 Discharged to Home. Impression: Diarrhea, unspecified; Nausea. jd3 Condition is Stable. Forms are Medication Reconciliation Form, Thank You Letter, Antibiotic Education, Prescription Opioid Use. Follow up: Emergency Department; When: As needed; Reason: Worsening of condition. Follow up: Private Physician; When: 2 - 3 days; Reason: Recheck today's complaints, Continuance of care, Re-evaluation by your physician. kb
--- NOTE | 2018-10-25 20:19 | ER ---
Nurse's Notes [facility] Name: Nyasia Houser Age: 38 yrs Sex: Female : 1980 Arrival Date: 10/25/2018 Time: 17:43 Bed 6 Private MD: Diagnosis: Diarrhea, unspecified;Nausea Presentation: 10/25 17:47 Presenting complaint: Patient states: n/v/d/dizziness for "awhile." Has been at the urgent care recently and they said her SBP was in the 90s and normally it is higher for her. Transition of care: patient was not received from another setting of care. Onset of symptoms is unknown. Care prior to arrival: None. 17:47 Method Of Arrival: Ambulatory 17:47 Acuity: MELISSA 3 17:59 Risk Assessment: Do you want to hurt yourself or someone else? Patient reports no hj desire to harm self or others. Initial Sepsis Screen: Does the patient meet any 2 criteria? HR > 90 bpm. Does the patient have a suspected source of infection? No. Patient's initial sepsis screen is negative. Triage Assessment: 17:53 General: Appears in no apparent distress. uncomfortable, Behavior is calm, cooperative, hj appropriate for age. Pain: Denies pain. GI: Reports diarrhea, nausea. BAGGAGE PORTER: 18:03 LMP 08/27/2018 hj Historical: - Allergies: 17:48 Codeine; sv - PMHx: 17:48 fatty liver; shingles; sv - PSHx: 17:48 Cholecystectomy; ovarian cyst removal; sv - Immunization history:: Adult Immunizations up to date. - Social history:: Smoking status: Patient/guardian denies using tobacco, Patient/guardian denies using alcohol. - Ebola Screening: : Patient negative for fever greater than or equal to 101.5 degrees Fahrenheit, and additional compatible Ebola Virus Disease symptoms Patient denies exposure to infectious person Patient denies travel to an Ebola-affected area in the 21 days before illness onset. Screenin:53 Abuse screen: Denies threats or abuse. Denies injuries from another. Nutritional hj screening: No deficits noted. Tuberculosis screening: No symptoms or risk factors identified. Fall Risk None identified. Assessment: 17:56 GI: Abdomen is non-distended, obese. hj 17:56 General: Appears in no apparent distress. uncomfortable, Behavior is calm, cooperative, hj appropriate for age. Pain: Complains of pain in L testicle, L flank. Neuro: Level of Consciousness is awake, alert, obeys commands, Oriented to person, place, time, situation, Appropriate for age. Cardiovascular: Denies chest pain, Capillary refill < 3 seconds Patient's skin is warm and dry. Respiratory: Airway is patent Respiratory effort is even, unlabored, Respiratory pattern is regular, symmetrical. : No signs and/or symptoms were reported regarding the genitourinary system. EENT: No signs and/or symptoms were reported regarding the EENT system. Derm: No signs and/or symptoms reported regarding the dermatologic system. Musculoskeletal: No signs and/or symptoms reported regarding the musculoskeletal system. 18:51 Reassessment: Patient and/or family updated on plan of care and expected duration. Pain hj level reassessed. Patient is alert, oriented x 3, equal unlabored respirations, skin warm/dry/pink. IV fluids running;. 19:18 Reassessment: Patient appears in no apparent distress at this time. Patient and/or jd3 family updated on plan of care and expected duration. Pain level reassessed. Patient is alert, oriented x 3, equal unlabored respirations, skin warm/dry/pink. Patient states feeling better. 20:34 Reassessment: Patient appears in no apparent distress at this time. Patient and/or jd3 family updated on plan of care and expected duration. Pain level reassessed. Patient is alert, oriented x 3, equal unlabored respirations, skin warm/dry/pink. Vital Signs: 17:48 BP 127 / 66; Pulse 120; Resp 22; Temp 97.6; Pulse Ox 100% ; Weight 92.53 kg; Height 5 sv ft. 2 in. (157.48 cm); Pain 0/10; 18:03 BP 123 / 80 Supine; Pulse 122; Resp 18; Pulse Ox 100% on R/A; hj 18:03 BP 118 / 75 Sitting; Pulse 125; Resp 18; Pulse Ox 99% on R/A; hj 18:03 BP 126 / 90 Standing; Pulse 124; Resp 18; Pulse Ox 100% on R/A; hj 19:18 BP 102 / 80; Pulse 101; Resp 18 S; Pulse Ox 98% on R/A; hj 20:35 BP 105 / 77; Pulse 96; Resp 16 S; Pulse Ox 99% on R/A; jd3 17:48 Body Mass Index 37.31 (92.53 kg, 157.48 cm) sv ED Course: 17:43 Patient arrived in ED. mr 17:48 Triage completed. sv 17:50 Arm band placed on. sv 17:53 Yasmeen Matthews FNP-C [facility]. kb 17:53 Roberto Andersen MD is Attending Physician. kb 17:53 Tulio Chery, RN is Primary Nurse. hj 18:00 Patient has correct armband on for positive identification. Placed in gown. Bed in low hj position. Call light in reach. Side rails up X 1. Adult w/ patient. 18:15 Urine collected: clean catch specimen, clear. dh3 18:20 Initial lab(s) drawn, by pr, sent to lab. Urine collected: clean catch specimen, jade hj colored. Inserted saline lock: 20 gauge in right antecubital area, using aseptic technique. Blood collected. 18:26 CBC with Diff Sent. hj 18:26 Basic Metabolic Panel Sent. hj 20:32 No provider procedures requiring assistance completed. IV discontinued, intact, jd3 bleeding controlled, No redness/swelling at site. Pressure dressing applied. Administered Medications: 18:20 Drug: NS 0.9% 1000 ml Route: IV; Rate: 1000 ml; Site: right antecubital; hj 18:52 Follow up: IV Status: Infusion continued hj 18:20 Drug: Zofran 4 mg Route: IVP; Site: right antecubital; hj 18:51 Follow up: Response: No adverse reaction; Nausea is decreased Outcome: 20:19 Discharge ordered by . kb 20:33 Discharged to home ambulatory, with family. jd3 20:33 Condition: stable 20:33 Discharge instructions given to patient, family, Instructed on discharge instructions, follow up and referral plans. medication usage, Demonstrated understanding of instructions, follow-up care, medications, Prescriptions given X 1. 20:35 Patient left the ED. jd3 Signatures: Yasmeen Matthews FNP-C FNP-Ckb Verde, Stephanie, RN RN sv Trevor Mitali mr Tulio Chery, GILBERTO MACIAS Cathy [facility] Bal Wick RN RN jd3 Corrections: (The following items were deleted from the chart) 17:50 17:47 Presenting complaint: Patient states: n/v/d/dizziness for "awhile." sv sv 17:50 17:48 92.53 kg; Height 5 ft. 2 in.; BMI: 37.3; sv sv 17:51 17:48 Pulse 120bpm; Resp 22bpm; Pulse Ox 100%; Temp 97.6F; 92.53 kg; Height 5 ft. 2 sv in.; BMI: 37.3; sv 18:51 18:15 Reassessment: Patient and/or family updated on plan of care and expected hj duration. Pain level reassessed. Patient is alert, oriented x 3, equal unlabored respirations, skin warm/dry/pink. wheeled to CT: hj 19:21 19:18 Reassessment: Patient appears in no apparent distress at this time. Patient jd3 and/or family updated on plan of care and expected duration. Pain level reassessed. Patient is alert, oriented x 3, equal unlabored respirations, skin warm/dry/pink. Patient states feeling better. hj
[2018-10-25 20:46] VITALS: TEMP 97.6
[2018-10-25 20:51] VITALS: BP 105/77; O2SAT 99
== END 2018-10-25 20:35 | disposition home or self-care (01) ==
LOC: ER 17:40
DX: R19.7 Diarrhea, unspecified (principal); R11.0 Nausea; Z88.5 Allergy status to narcotic agent
CPT/HCPCS: 36415; 80048; 81003; 81025; 85025; 87804; 96361; 96374; 99284; J2405; J7030

== ENCOUNTER 2018-11-19 18:46 | Emergency (ER) | payer OTHER, SELFPAY ==
[2018-11-19] MEDS ORDERED: MECLIZINE HCL 12.5 MG TAB ONE (19:53)
--- NOTE | 2018-11-19 20:12 | ER ---
Nurse's Notes [facility] Name: Nyasia Houser Age: 38 yrs Sex: Female : 1980 Arrival Date: 11/19/2018 Time: 18:48 Bed 9 Private MD: Diagnosis: Otalgia, right ear Presentation: 11/19 19:00 Presenting complaint: Patient states: "Back in Jul. I have been having headaches and I jd3 was told I had sinusitis. after taking pain medications and antibiotics the pain is still there and now I am having ear pain. I have seen the doctor, but they said it was just bad allergies. I was also told I might have fluid in my ear.". Transition of care: patient was not received from another setting of care. Onset of symptoms was November 19, 2018. Risk Assessment: Do you want to hurt yourself or someone else? Patient reports no desire to harm self or others. Initial Sepsis Screen: Does the patient meet any 2 criteria? No. Patient's initial sepsis screen is negative. Does the patient have a suspected source of infection? No. Patient's initial sepsis screen is negative. Care prior to arrival: None. 19:00 Method Of Arrival: Ambulatory jd3 19:00 Acuity: MELISSA 4 jd3 TEST ANALYST: 19:04 LMP 10/18/2018 jd3 Historical: - Allergies: 19:04 Codeine; jd3 19:04 PENICILLINS; jd3 - Home Meds: 19:04 None [Active]; jd3 - PMHx: 19:04 shingles; fatty liver; jd3 - PSHx: 19:04 Cholecystectomy; ovarian cyst removal; jd3 - Immunization history:: Adult Immunizations up to date. - Social history:: Smoking status: Patient/guardian denies using tobacco, but has a distant history of tobacco abuse. - Ebola Screening: : Patient negative for fever greater than or equal to 101.5 degrees Fahrenheit, and additional compatible Ebola Virus Disease symptoms. Screenin:15 Abuse screen: Denies threats or abuse. Denies injuries from another. Nutritional aj1 screening: No deficits noted. Tuberculosis screening: No symptoms or risk factors identified. Fall Risk None identified. Assessment: 19:15 General: Appears in no apparent distress. uncomfortable, Behavior is calm, cooperative, aj1 appropriate for age. Pain: Complains of pain in face and right ear. Neuro: Level of Consciousness is awake, alert, obeys commands, Oriented to person, place, time, situation, Gait is steady, Speech is normal, Facial symmetry appears normal, Reports dizziness, headache. Cardiovascular: Patient's skin is warm and dry. Respiratory: Airway is patent Respiratory effort is even, unlabored, Respiratory pattern is regular, symmetrical. GI: No signs and/or symptoms were reported involving the gastrointestinal system. : No signs and/or symptoms were reported regarding the genitourinary system. EENT: Reports ear pain. Derm: No signs and/or symptoms reported regarding the dermatologic system. Skin is pink, warm \\T\\ dry. normal. Musculoskeletal: No signs and/or symptoms reported regarding the musculoskeletal system. Circulation, motion, and sensation intact. 20:13 Reassessment: Patient appears in no apparent distress at this time. No changes from aj1 previously documented assessment. Patient and/or family updated on plan of care and expected duration. Pain level reassessed. Patient is alert, oriented x 3, equal unlabored respirations, skin warm/dry/pink. Vital Signs: 19:04 BP 120 / 88; Pulse 96; Resp 17 S; Temp 97.9(TE); Pulse Ox 100% on R/A; Weight 91.17 kg jd3 (R); Height 5 ft. 2 in. (157.48 cm) (R); Pain 9/10; 19:04 Body Mass Index 36.76 (91.17 kg, 157.48 cm) jd3 ED Course: 18:48 Patient arrived in ED. as 18:55 Yasmeen Matthews FNP-C [facility]. kb 18:55 Robetro Andersen MD is Attending Physician. kb 19:03 Triage completed. jd3 19:06 Arm band placed on. jd3 19:15 Patient has correct armband on for positive identification. Bed in low position. Call aj1 light in reach. Side rails up X 1. 19:15 No provider procedures requiring assistance completed. Patient did not have IV access aj1 during this emergency room visit. 19:35 Anel Clements, RN is Primary Nurse. aj1 Administered Medications: 19:47 Drug: Meclizine 25 mg Route: PO; aj1 Outcome: 20:12 Discharge ordered by . kb 20:32 Discharged to home ambulatory. aj1 20:32 Condition: good 20:32 Discharge instructions given to patient, Instructed on discharge instructions, follow up and referral plans. Demonstrated understanding of instructions, follow-up care. 20:32 Patient left the ED. aj1 Signatures: Yasmeen Matthews, DIRECTOR OF CORPORATE REAL ESTATE-C DIRECTOR OF CORPORATE REAL ESTATE-Ckb Anel Clements, RN RN aj1 Vilma Vaz Jonathon RN RN jd3
--- NOTE | 2018-11-19 20:12 | EDPHYS ---
Physician Documentation [facility] Name: Nyasia Houser Age: 38 yrs Sex: Female : 1980 Arrival Date: 11/19/2018 Time: 18:48 Bed 9 Private MD: ED Physician Roberto Andersen HPI: 11/19 20:09 This 38 yrs old Female presents to ER via Ambulatory with complaints of Ear kb Pain, Headache, Sore Throat. 20:09 The patient presents with pain. The complaints affect the right ear. Onset: The kb symptoms/episode began/occurred 4 month(s) ago. Modifying factors: The symptoms are alleviated by nothing, the symptoms are aggravated by nothing. Associated signs and symptoms: Pertinent positives: headache, sore throat. Severity of symptoms: At their worst the symptoms were moderate in the emergency department the symptoms are unchanged. The patient has not experienced similar symptoms in the past. The patient has been recently seen by a physician:. Pt reports she has had a headache, ear pain, sinus pressure, nausea, and dizziness since July. Reports she has been seen here, urgent care and her PCP a few times for similar symptoms. Has tried many otc medications, antibiotics, steroids and nothing has worked. Stopped taking all medications a few days ago and headache has been better, but ear pain persists. . 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 - Social history:: Smoking status: Patient/guardian denies using tobacco, but has a distant history of tobacco abuse. - Ebola Screening: : Patient negative for fever greater than or equal to 101.5 degrees Fahrenheit, and additional compatible Ebola Virus Disease symptoms. ROS: 20:08 Constitutional: Negative for fever, chills, and weight loss, Neck: Negative for injury, kb pain, and swelling, Cardiovascular: Negative for chest pain, palpitations, and edema, Respiratory: Negative for shortness of breath, cough, wheezing, and pleuritic chest pain, Abdomen/GI: Negative for abdominal pain, nausea, vomiting, diarrhea, and constipation, Back: Negative for injury and pain, MS/Extremity: Negative for injury and deformity, Skin: Negative for injury, rash, and discoloration. 20:08 ENT: Positive for ear pain, sore throat. 20:08 Neuro: Positive for headache. Exam: 20:08 Constitutional: This is a well developed, well nourished patient who is awake, alert, kb and in no acute distress. Head/Face: Normocephalic, atraumatic. Neck: Trachea midline, no thyromegaly or masses palpated, and no cervical lymphadenopathy. Supple, full range of motion without nuchal rigidity, or vertebral point tenderness. No Meningismus. Chest/axilla: Normal chest wall appearance and motion. Nontender with no deformity. No lesions are appreciated. Cardiovascular: Regular rate and rhythm with a normal S1 and S2. No gallops, murmurs, or rubs. Normal PMI, no JVD. No pulse deficits. Respiratory: Lungs have equal breath sounds bilaterally, clear to auscultation and percussion. No rales, rhonchi or wheezes noted. No increased work of breathing, no retractions or nasal flaring. Abdomen/GI: Soft, non-tender, with normal bowel sounds. No distension or tympany. No guarding or rebound. No evidence of tenderness throughout. Back: No spinal tenderness. No costovertebral tenderness. Full range of motion. Skin: Warm, dry with normal turgor. Normal color with no rashes, no lesions, and no evidence of cellulitis. MS/ Extremity: Pulses equal, no cyanosis. Neurovascular intact. Full, normal range of motion. Neuro: Awake and alert, GCS 15, oriented to person, place, time, and situation. Cranial nerves II-XII grossly intact. Motor strength 5/5 in all extremities. Sensory grossly intact. Cerebellar exam normal. Normal gait. 20:08 ENT: External ear(s): are unremarkable, Ear canal(s): are normal, TM's: fluid levels, bilaterally, Nose: is normal, Mouth: is normal, Posterior pharynx: Airway: normal, no evidence of obstruction, Tonsils: bilaterally enlarged, with erythema, Uvula: normal, midline, swelling, that is mild, erythema, that is mild. Vital Signs: 19:04 BP 120 / 88; Pulse 96; Resp 17 S; Temp 97.9(TE); Pulse Ox 100% on R/A; Weight 91.17 kg jd3 (R); Height 5 ft. 2 in. (157.48 cm) (R); Pain 9/10; 19:04 Body Mass Index 36.76 (91.17 kg, 157.48 cm) jd3 MDM: 19:11 Patient medically screened. kb 20:08 Data reviewed: vital signs, nurses notes. Data interpreted: Pulse oximetry: on room air kb is 100 %. Interpretation: normal. Counseling: I had a detailed discussion with the patient and/or guardian regarding: the historical points, exam findings, and any diagnostic results supporting the discharge/admit diagnosis, the need for outpatient follow up, an ENT specialist, to return to the emergency department if symptoms worsen or persist or if there are any questions or concerns that arise at home. 11/19 19:34 Order name: Strep; Complete Time: 20:05 kb Administered Medications: 19:47 Drug: Meclizine 25 mg Route: PO; aj1 Disposition: 11/20 08:51 Co-signature as Attending Physician, Roberto Andersen MD I agree with the assessment and corby plan of care. Disposition: 11/19/18 20:12 Discharged to Home. Impression: Otalgia, right ear. - Condition is Stable. - Discharge Instructions: Earache, Adult, Otitis Media With Effusion. - Medication Reconciliation Form, Thank You Letter, Antibiotic Education, Prescription Opioid Use form. - Follow up: Emergency Department; When: As needed; Reason: Worsening of condition. Follow up: Private Physician; When: 2 - 3 days; Reason: Recheck today's complaints, Continuance of care, Re-evaluation by your physician. Signatures: Dispatcher [employer] Yasmeen Ramos, GRAY-C HYDROCRANE OPERATOR-Anel Parker RN RN aj1 Roberto Andersen MD MD cha Davies, Jonathon RN RN jd3 Corrections: (The following items were deleted from the chart) 11/19 20:32 20:12 11/19/2018 20:12 Discharged to Home. Impression: Otalgia, right ear. Condition is aj1 Stable. Forms are Medication Reconciliation Form, Thank You Letter, Antibiotic Education, Prescription Opioid Use. Follow up: Emergency Department; When: As needed; Reason: Worsening of condition. Follow up: Private Physician; When: 2 - 3 days; Reason: Recheck today's complaints, Continuance of care, Re-evaluation by your physician. kb
[2018-11-19 20:38] VITALS: BP 120/88; TEMP 97.9; O2SAT 100
== END 2018-11-19 20:32 | disposition home or self-care (01) ==
LOC: ER 18:46
DX: H92.01 Otalgia, right ear (principal)
CPT/HCPCS: 87070; 87081; 99283

== ENCOUNTER 2018-11-21 14:44 | Emergency (ER) | payer SELFPAY ==
--- OUTSIDE RECORDS SUMMARY | 2018-11-21 14:46 | XMS REPORT ---
:1980 [facility] [address] [place] [address] Care Team Providers Name Role Phone Unavailable Unavailable Unavailable Problems This patient has no known problems. Allergies, Adverse Reactions, Alerts This patient has no known allergies or adverse reactions. Medications This patient has no known medications.
[2018-11-21 15:13] LABS: Urine Blood TRACE (NEG); Urine Glucose NEGATIVE (NEG); Urine Protein NEGATIVE (NEG); Urine Specific Gravity 1.015 (1.005-1.030)
[2018-11-21] MEDS ORDERED: NA CHLORIDE 0.9% 1,000 ML ONE (16:49)
[2018-11-21] MEDS ORDERED: LIDOCAINE VISCOUS 2% SOLN 15 ML UDC ONE (16:49)
[2018-11-21] MEDS ORDERED: MAGNE/ALUM HYDROXD 30 ML UCUP ONE (16:49)
[2018-11-21] MEDS ORDERED: ONDANSETRON 4 MG/2 ML VIAL ONE (16:49)
[2018-11-21] MEDS ORDERED: FAMOTIDINE 20 MG/2 ML VIAL IV ONE (16:49)
[2018-11-21 17:15] LABS: Absolute Lymphocytes (CBC) 2.1 K/uL (0.7-4.9); Absolute Monocytes 0.8 K/uL (0.1-1.3); Absolute Neutrophil 6.2 K/uL (1.8-8.0); Basophils % 0.7 % (0-1.3); Eosinophils % 1.6 % (0-4.4); Hematocrit 45.3 % (36.0-45.0); Lymphocytes % 22.2 % (15.3-44.8); MPV 8.6 fL (7.6-11.3); Monocytes % 8.3 % (3.3-12.3); RBC Red Blood Cell Count 4.83 M/uL (3.86-4.86)
[2018-11-21 17:32] LABS: ALT/SGPT 52 U/L (12-78); AST/SGOT 19 U/L (15-37); Albumin 3.8 g/dL (3.4-5.0); Alkaline Phosphatase 82 U/L (45-117); BUN Blood Urea Nitrogen 10 mg/dL (7-18); Bicarbonate 25 mmol/L (21-32); Bilirubin Direct < 0.1 mg/dL (0-0.2); Bilirubin Total 0.4 mg/dL (0.2-1.0); Glucose Level 95 mg/dL (74-106); Lipase 143 U/L (73-393); Potassium 3.9 mmol/L (3.5-5.1); Protein, Total 8.1 g/dL (6.4-8.2); Sodium Level 140 mmol/L (136-145)
--- NOTE | 2018-11-21 18:03 | EDPHYS ---
Physician Documentation [facility] Name: Nyasia Houser Age: 38 yrs Sex: Female : 1980 Arrival Date: 11/21/2018 Time: 14:46 Bed 28 Private MD: ED Physician Ricky Ames HPI: 11/21 16:30 This 38 yrs old Female presents to ER via Ambulatory with complaints of cp Nausea/Vomiting. 16:30 The patient presents to the emergency department with nausea, that is moderate, cp vomiting, that is intermittent. Onset: The symptoms/episode began/occurred today, after taking prescribed meclizine for dizziness. 16:30 Associated signs and symptoms: Pertinent negatives: constipation, diarrhea, dysuria, cp fever. 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 - Social history:: Smoking status: unknown. - Ebola Screening: : No symptoms or risks identified at this time. ROS: 16:35 Constitutional: Negative for body aches, chills, fever, poor PO intake. cp 16:35 Eyes: Negative for injury, pain, redness, and discharge. cp 16:35 ENT: Negative for drainage from ear(s), ear pain, sore throat, difficulty swallowing, difficulty handling secretions. 16:35 Cardiovascular: Negative for chest pain, edema, palpitations. 16:35 Respiratory: Negative for cough, shortness of breath, wheezing. 16:35 Abdomen/GI: Positive for abdominal pain, nausea and vomiting, Negative for diarrhea, constipation, anorexia, hematemesis, black/tarry stool, rectal bleeding. 16:35 Back: Positive for radiated pain. 16:35 : Negative for urinary symptoms, vaginal bleeding. 16:35 Skin: Negative for cellulitis, rash. 16:35 Neuro: Negative for altered mental status, headache, weakness. 16:35 All other systems are negative. Exam: 16:45 Constitutional: The patient appears in no acute distress, alert, awake, non-toxic, well cp developed, well nourished. 16:45 Head/Face: Normocephalic, atraumatic. cp 16:45 Eyes: Periorbital structures: appear normal, Conjunctiva: normal, no exudate, no injection, Sclera: no appreciated abnormality, Lids and lashes: appear normal, bilaterally. 16:45 ENT: External ear(s): are unremarkable, Nose: is normal, Mouth: is normal, Posterior pharynx: is normal, airway is patent, no erythema, no exudate. 16:45 Chest/axilla: Inspection: normal, Palpation: is normal, no crepitus, no tenderness. 16:45 Cardiovascular: Rate: normal, Rhythm: regular. 16:45 Respiratory: the patient does not display signs of respiratory distress, Respirations: normal, no use of accessory muscles, no retractions, no splinting, no tachypnea, labored breathing, is not present, Breath sounds: are clear throughout, no decreased breath sounds, no stridor, no wheezing. 16:45 Abdomen/GI: Inspection: abdomen appears normal, Bowel sounds: active, Palpation: soft, in all quadrants, mild abdominal tenderness, in the epigastric area and right upper quadrant, rebound tenderness, is not appreciated, voluntary guarding, is not appreciated, involuntary guarding, is not appreciated. 16:45 Back: CVA tenderness, is absent. Vital Signs: 14:54 BP 112 / 79; Pulse 91; Resp 20; Temp 97.6; Pulse Ox 99% ; Weight 91.17 kg; Height 5 ft. sv 2 in. (157.48 cm); 14:54 Body Mass Index 36.76 (91.17 kg, 157.48 cm) sv MDM: 16:05 Patient medically screened. 18:00 Data reviewed: vital signs, nurses notes, lab test result(s), and as a result, I will cp discharge patient. 18:00 Counseling: I had a detailed discussion with the patient and/or guardian regarding: the cp historical points, exam findings, and any diagnostic results supporting the discharge/admit diagnosis, lab results, to return to the emergency department if symptoms worsen or persist or if there are any questions or concerns that arise at home. Response to treatment: the patient's symptoms have mildly improved after treatment, and as a result, I will discharge patient. Special discussion: Based on the patient's Hx, exam, and Dx evaluation, there is no indication for emergent surgery or inpatient Tx. It is understood by the patient/guardian that if the Sx's persist or worsen they need to return immediately for re-evaluation. 11/21 15:05 Order name: Urine Dipstick--Ancillary (enter results); Complete Time: 16:33 eb 11/21 15:05 Order name: Urine --Ancillary (enter results); Complete Time: 16:33 eb 11/21 16:34 Order name: Basic Metabolic Panel; Complete Time: 17:54 cp 11/21 16:34 Order name: CBC with Diff; Complete Time: 17:30 cp 11/21 17:30 Interpretation: Normal except: HGB 15.3; HCT 45.3. cp 11/21 16:34 Order name: Creatinine for Radiology; Complete Time: 17:54 cp 11/21 16:34 Order name: Hepatic Function; Complete Time: 17:54 cp 11/21 16:34 Order name: Lipase; Complete Time: 17:54 cp 11/21 16:34 Order name: IV Saline Lock; Complete Time: 16:54 cp 11/21 16:34 Order name: Labs collected and sent; Complete Time: 16:54 cp 11/21 17:54 Order name: PO challenge; Complete Time: 18:18 cp Administered Medications: 16:54 Drug: Zofran 4 mg Route: IVP; Site: left antecubital; mg2 17:55 Follow up: Response: No adverse reaction; Marked relief of symptoms mg2 16:54 Drug: Pepcid 20 mg Route: IVP; Site: left antecubital; mg2 17:55 Follow up: Response: No adverse reaction; Marked relief of symptoms mg2 16:54 Drug: GI Cocktail without - (Maalox Suspension 30 ml, Lidocaine Liquid 2 % 15 mg2 ml) Route: PO; 17:55 Follow up: Response: No adverse reaction; Marked relief of symptoms mg2 16:54 Drug: NS 0.9% 1000 ml Route: IV; Rate: 1 bolus; Site: left antecubital; mg2 17:55 Follow up: Response: No adverse reaction; IV Status: Completed infusion mg2 Disposition: 19:07 Co-signature as Attending Physician, Ricky Ames MD. rn Disposition: 11/21/18 18:02 Discharged to Home. Impression: Epigastric pain. - Condition is Stable. - Discharge Instructions: Gastroesophageal Reflux Disease, Adult. - Prescriptions for Protonix 40 mg Oral Tablet - take 1 tablet by ORAL route once daily; 30 tablet. Zofran 4 mg Oral Tablet - take 1 tablet by ORAL route every 12 hours As needed; 20 tablet. - Medication Reconciliation Form, Thank You Letter, Antibiotic Education, Prescription Opioid Use form. - Follow up: Private Physician; When: 2 - 3 days; Reason: Worsening of condition. - Problem is new. - Symptoms have improved. Signatures: Dispatcher [employer] Ericka Ontiveros RN RN Ricky Dumont MD MD rn Page, Corey, PA PA cp Orlin Combs RN RN mg2 Corrections: (The following items were deleted from the chart) 18:18 18:02 11/21/2018 18:02 Discharged to Home. Impression: Epigastric pain. Condition is mg2 Stable. Forms are Medication Reconciliation Form, Thank You Letter, Antibiotic Education, Prescription Opioid Use. Follow up: Private Physician; When: 2 - 3 days; Reason: Worsening of condition. Problem is new. Symptoms have improved. cp
--- NOTE | 2018-11-21 18:03 | ER ---
Nurse's Notes [facility] Name: Nyasia Houser Age: 38 yrs Sex: Female : 1980 Arrival Date: 11/21/2018 Time: 14:46 Bed 28 Private MD: Diagnosis: Epigastric pain Presentation: 11/21 14:53 Presenting complaint: Patient states: abd pain, n/v, feels bloated, epigastric pain sv after taking a Meclizine. Transition of care: patient was not received from another setting of care. Onset of symptoms was November 19, 2018. Care prior to arrival: None. 14:53 Method Of Arrival: Ambulatory sv 14:53 Acuity: MELISSA 3 sv 18:17 Risk Assessment: Do you want to hurt yourself or someone else? Patient reports no mg2 desire to harm self or others. Initial Sepsis Screen: Does the patient meet any 2 criteria? No. Patient's initial sepsis screen is negative. Does the patient have a suspected source of infection? No. Patient's initial sepsis screen is negative. Triage Assessment: 14:55 General: Appears in no apparent distress. uncomfortable, obese, well developed, sv Behavior is calm, cooperative, appropriate for age. Pain: Complains of pain in epigastric area, right upper quadrant and left upper quadrant. Neuro: Level of Consciousness is awake, alert, obeys commands, Oriented to person, place, time, situation, Gait is steady. Respiratory: Respiratory effort is even, unlabored, Respiratory pattern is regular, symmetrical. GI: Reports bloating, nausea, vomiting. 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 - Social history:: Smoking status: unknown. - Ebola Screening: : No symptoms or risks identified at this time. Screenin:55 Abuse screen: Denies threats or abuse. Denies injuries from another. Nutritional mg2 screening: No deficits noted. Tuberculosis screening: No symptoms or risk factors identified. Fall Risk IV access (20 points). Assessment: 18:14 General: Appears in no apparent distress. comfortable, Behavior is calm, cooperative. mg2 Pain: Complains of pain in left upper quadrant and right upper quadrant and epigastric area Pain does not radiate. Pain currently is 2 out of 10 on a pain scale. Quality of pain is described as aching, Pain began gradually, 3 months now. Neuro: Level of Consciousness is awake, alert, obeys commands, Oriented to person, place, time, situation, Reports dizziness. Cardiovascular: Capillary refill < 3 seconds Patient's skin is warm and dry. Respiratory: Airway is patent Respiratory effort is even, unlabored, Respiratory pattern is regular, symmetrical. GI: Abdomen is round non-distended, Reports upper abdominal pain, epigastric pain. : No signs and/or symptoms were reported regarding the genitourinary system. EENT: No signs and/or symptoms were reported regarding the EENT system. Derm: Skin is intact, is healthy with good turgor, Skin is pink, warm \T\ dry. normal. Musculoskeletal: Circulation, motion, and sensation intact. Capillary refill < 3 seconds. 18:16 Reassessment: patient tolerated oral challenge. mg2 Vital Signs: 14:54 BP 112 / 79; Pulse 91; Resp 20; Temp 97.6; Pulse Ox 99% ; Weight 91.17 kg; Height 5 ft. sv 2 in. (157.48 cm); 14:54 Body Mass Index 36.76 (91.17 kg, 157.48 cm) sv ED Course: 14:46 Patient arrived in ED. tw3 14:54 Triage completed. sv 14:54 Arm band placed on. sv 16:05 Roberto Sorto PA [facility]. cp 16:05 Ricky Ames MD is Attending Physician. cp 16:13 Orlin Combs RN is Primary Nurse. mg2 16:55 No provider procedures requiring assistance completed. Inserted saline lock: 20 gauge mg2 in left antecubital area, using aseptic technique. Blood collected. 18:16 Patient did not have IV access during this emergency room visit. mg2 18:17 Patient has correct armband on for positive identification. mg2 Administered Medications: 16:54 Drug: Zofran 4 mg Route: IVP; Site: left antecubital; mg2 17:55 Follow up: Response: No adverse reaction; Marked relief of symptoms mg2 16:54 Drug: Pepcid 20 mg Route: IVP; Site: left antecubital; mg2 17:55 Follow up: Response: No adverse reaction; Marked relief of symptoms mg2 16:54 Drug: GI Cocktail without - (Maalox Suspension 30 ml, Lidocaine Liquid 2 % 15 mg2 ml) Route: PO; 17:55 Follow up: Response: No adverse reaction; Marked relief of symptoms mg2 16:54 Drug: NS 0.9% 1000 ml Route: IV; Rate: 1 bolus; Site: left antecubital; mg2 17:55 Follow up: Response: No adverse reaction; IV Status: Completed infusion mg2 Outcome: 18:02 Discharge ordered by . cash 18:16 Discharged to home ambulatory, with family. mg2 18:16 Condition: stable 18:16 Discharge instructions given to patient, Instructed on discharge instructions, follow up and referral plans. medication usage, Demonstrated understanding of instructions, follow-up care, medications, Prescriptions given X 2. 18:18 Patient left the ED. mg2 Signatures: Ericka Melgoza RN RN sv Roberto Sorto PA PA cp Wade, Brandi tw3 Orlin Combs RN RN mg2 Corrections: (The following items were deleted from the chart) 14:55 14:54 Pulse 91bpm; Resp 20bpm; Pulse Ox 99%; Temp 97.6F; 91.17 kg; Height 5 ft. 2 in.; sv BMI: 36.7; sv 14:55 14:54 Pulse 91bpm; Resp 20bpm; Pulse Ox 99%; Temp 97.6F; 91.17 kg; Height 5 ft. 2 in.; sv BMI: 36.7; sv
[2018-11-21 18:50] VITALS: BP 112/79; TEMP 97.6; O2SAT 99
== END 2018-11-21 18:18 | disposition home or self-care (01) ==
LOC: ER 14:44
DX: R10.13 Epigastric pain (principal); R11.2 Nausea with vomiting, unspecified; Z88.5 Allergy status to narcotic agent; Z88.0 Allergy status to penicillin
CPT/HCPCS: 36415; 80048; 80076; 81003; 81025; 83690; 85025; 96361; 96374; 96375; 99284; J2405; J7030

== ENCOUNTER 2018-11-26 06:40 | Emergency (ER) | payer SELFPAY ==
--- OUTSIDE RECORDS SUMMARY | 2018-11-26 06:42 | XMS REPORT ---
:1980 [facility] [address] [place] [address] Care Team Providers Name Role Phone Unavailable Unavailable Unavailable Problems This patient has no known problems. Allergies, Adverse Reactions, Alerts This patient has no known allergies or adverse reactions. Medications This patient has no known medications.
[2018-11-26 07:44] LABS: Absolute Lymphocytes (CBC) 1.6 K/uL (0.7-4.9); Absolute Monocytes 0.7 K/uL (0.1-1.3); Absolute Neutrophil 6.2 K/uL (1.8-8.0); Basophils % 0.4 % (0-1.3); Eosinophils % 1.8 % (0-4.4); Hematocrit 43.5 % (36.0-45.0); Lymphocytes % 18.9 % (15.3-44.8); MPV 7.9 fL (7.6-11.3); Monocytes % 7.7 % (3.3-12.3); RBC Red Blood Cell Count 4.72 M/uL (3.86-4.86)
[2018-11-26 08:03] LABS: Albumin 4.1 g/dL (3.4-5.0); Bilirubin Direct 0.2 mg/dL (0-0.2); Bilirubin Total 0.8 mg/dL (0.2-1.0); Magnesium 2.1 mg/dL (1.8-2.4); Potassium 3.4 mmol/L (3.5-5.1)
[2018-11-26] MEDS ORDERED: NA CHLORIDE 0.9% 1,000 ML ONE (08:06)
--- NOTE | 2018-11-26 08:21 | ER ---
Nurse's Notes [facility] Name: Nyasia Houser Age: 38 yrs Sex: Female : 1980 Arrival Date: 11/26/2018 Time: 06:41 Bed 13 Private MD: Diagnosis: Upper abdominal pain, unspecified Presentation: 11/26 06:57 Presenting complaint: Patient states: back in August i was told here that i have hj gastritis, more than a week ago, i started having abd pain, burning feeling (epigastric area), most likely from taking all this medications for 4 months now, reports nausea, denies vomiting; reports diarrhea;. Transition of care: patient was not received from another setting of care. Onset of symptoms was November 26, 2018. Risk Assessment: Do you want to hurt yourself or someone else? Patient reports no desire to harm self or others. Initial Sepsis Screen: Does the patient meet any 2 criteria? No. Patient's initial sepsis screen is negative. Does the patient have a suspected source of infection? No. Patient's initial sepsis screen is negative. Care prior to arrival: None. 06:57 Method Of Arrival: Ambulatory 06:57 Acuity: MELISSA 3 hj Triage Assessment: 07:01 General: Appears in no apparent distress. uncomfortable, Behavior is calm, cooperative, hj appropriate for age. Pain: Complains of pain in epigastric area. GI: Reports upper abdominal pain, nausea. 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 - Social history:: Smoking status: Patient/guardian denies using tobacco, Patient/guardian denies using alcohol. - Ebola Screening: : Patient negative for fever greater than or equal to 101.5 degrees Fahrenheit, and additional compatible Ebola Virus Disease symptoms Patient denies exposure to infectious person Patient denies travel to an Ebola-affected area in the 21 days before illness onset. Screenin:02 Abuse screen: Denies threats or abuse. Denies injuries from another. Nutritional hj screening: No deficits noted. Tuberculosis screening: No symptoms or risk factors identified. Fall Risk None identified. Assessment: 07:02 GI: Bowel sounds present X 4 quads. Abd is soft. hj 07:05 General: Appears in no apparent distress. comfortable, Behavior is calm, cooperative, rb1 Denies fever. Pain: Complains of pain in epigastric area, right upper quadrant and left upper quadrant Pain radiates to mid-sternal area Pain began x 1 week. Was diagnosed with GERD a week ago and was prescribed Protonix. Neuro: Level of Consciousness is awake, alert, obeys commands, Oriented to person, place, time, situation. Cardiovascular: Capillary refill < 3 seconds is brisk in bilateral fingers. Respiratory: Airway is patent Respiratory effort is even, unlabored, Respiratory pattern is regular, symmetrical. GI: Reports nausea. : No signs and/or symptoms were reported regarding the genitourinary system. Derm: Skin is dry, Skin is normal, Skin temperature is warm. Musculoskeletal: Range of motion: intact in all extremities, Reports muscle spasms. Vital Signs: 07:02 BP 115 / 79; Pulse 100; Resp 18; Temp 99.1(TE); Pulse Ox 98% on R/A; Weight 91.17 kg; hj Height 5 ft. 2 in. (157.48 cm); Pain 10/10; 08:00 BP 110 / 69; Pulse 89; Resp 17; Pulse Ox 98% on R/A; rb1 08:57 BP 111 / 76; Pulse 85; Resp 16; Pulse Ox 100% on R/A; rb1 07:02 Body Mass Index 36.76 (91.17 kg, 157.48 cm) ED Course: 06:41 Patient arrived in ED. ds1 07:00 Triage completed. hj 07:02 Arm band placed on right wrist. hj 07:03 Patient has correct armband on for positive identification. Placed in gown. Bed in low hj position. Call light in reach. Side rails up X 1. 07:05 Pulse ox on. NIBP on. Warm blanket given. rb1 07:13 Yasmeen Matthews FNP-C is PHCP. kb 07:13 Jr Benito MD is Attending Physician. kb 07:16 Maggi Alcantara, GILBERTO is Primary Nurse. rb1 07:35 Inserted saline lock: 22 gauge in right antecubital area, using aseptic technique. rb1 Blood collected. 08:57 No provider procedures requiring assistance completed. IV discontinued, intact, rb1 bleeding controlled, No redness/swelling at site. Pressure dressing applied. Administered Medications: 07:57 Drug: NS 0.9% 1000 ml Route: IV; Rate: 1000 ml; Site: right antecubital; rb1 08:44 Follow up: IV Status: Completed infusion rb1 08:44 Drug: Potassium Chloride 10 mEq Route: PO; rb1 08:55 Follow up: Response: Medication administered at discharge. rb1 Outcome: 08:20 Discharge ordered by . santos 08:57 Discharged to home ambulatory, with family. rb1 08:57 Condition: stable 08:57 Discharge instructions given to patient, Instructed on discharge instructions, follow up and referral plans. Demonstrated understanding of instructions, follow-up care, Prescriptions given X none 08:58 Patient left the ED. rb1 Signatures: Yasmeen Matthews, GUN FITTER-C GUN FITTER-Ckb Delores Brownlee ds1 Tulio Chery RN RN hj Barber, Rebecca, RN RN rb1 Corrections: (The following items were deleted from the chart) 07:01 06:57 Presenting complaint: Patient states: back in August i was told here that i have hj gastritis, more than a week ago, i have abd pain, burning feeling (epigastric area), most likely from taking all this medications for 4 months now, reports nausea, denies vomiting; 07:05 06:57 Presenting complaint: Patient states: back in August i was told here that i have hj gastritis, more than a week ago, i have abd pain, burning feeling (epigastric area), most likely from taking all this medications for 4 months now, reports nausea, denies vomiting; reports diarrhea; hj 07:05 07:02 Pulse 100bpm; Resp 18bpm; Pulse Ox 98% RA; Temp 99.1F Temporal; 91.17 kg; Height hj 5 ft. 2 in.; BMI: 36.7; Pain 10; hj
--- NOTE | 2018-11-26 08:21 | EDPHYS ---
Physician Documentation [facility] Name: Nyasia Houser Age: 38 yrs Sex: Female : 1980 Arrival Date: 11/26/2018 Time: 06:41 Bed 13 Private MD: ED Physician Jr Benito HPI: 11/26 07:57 This 38 yrs old Female presents to ER via Ambulatory with complaints of kb Abdominal Pain, Dizziness. 07:57 The patient presents with abdominal pain in the upper abdomen. Onset: The kb symptoms/episode began/occurred 2 week(s) ago. The symptoms do not radiate. Associated signs and symptoms: Pertinent positives: dizziness, muscle spasms. The symptoms are described as burning. Modifying factors: The symptoms are alleviated by nothing, the symptoms are aggravated by pressure. Severity of pain: At its worst the pain was moderate in the emergency department the pain is unchanged. The patient has not experienced similar symptoms in the past. The patient has been recently seen by a physician:. Pt states she recently took a lot of medications for headaches and dizziness. STarted having upper abd pain 2 weeks ago. Was seen here and diagnosed with gastritis and given protonix. Still having pain, but now having muscle spasms and dizziness. States she read the side effects of protonix and those were on the list as well as low magnesium. STates she thinks her magnesium is low because she read about those symptoms and she is having them as well. . 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 - Social history:: Smoking status: Patient/guardian denies using tobacco, Patient/guardian denies using alcohol. - Ebola Screening: : Patient negative for fever greater than or equal to 101.5 degrees Fahrenheit, and additional compatible Ebola Virus Disease symptoms Patient denies exposure to infectious person Patient denies travel to an Ebola-affected area in the 21 days before illness onset. ROS: 07:57 Constitutional: Negative for fever, chills, and weight loss, ENT: Negative for injury, kb pain, and discharge, Neck: Negative for injury, pain, and swelling, Cardiovascular: Negative for chest pain, palpitations, and edema, Respiratory: Negative for shortness of breath, cough, wheezing, and pleuritic chest pain, Back: Negative for injury and pain, : Negative for injury, bleeding, discharge, and swelling, MS/Extremity: Negative for injury and deformity, Skin: Negative for injury, rash, and discoloration. 07:57 Abdomen/GI: Positive for abdominal pain. 07:57 Neuro: Positive for dizziness. Exam: 07:57 Constitutional: This is a well developed, well nourished patient who is awake, alert, kb and in no acute distress. Head/Face: Normocephalic, atraumatic. ENT: Nares patent. No nasal discharge, no septal abnormalities noted. Tympanic membranes are normal and external auditory canals are clear. Oropharynx with no redness, swelling, or masses, exudates, or evidence of obstruction, uvula midline. Mucous membranes moist. Neck: Trachea midline, no thyromegaly or masses palpated, and no cervical lymphadenopathy. Supple, full range of motion without nuchal rigidity, or vertebral point tenderness. No Meningismus. Chest/axilla: Normal chest wall appearance and motion. Nontender with no deformity. No lesions are appreciated. Cardiovascular: Regular rate and rhythm with a normal S1 and S2. No gallops, murmurs, or rubs. Normal PMI, no JVD. No pulse deficits. Respiratory: Lungs have equal breath sounds bilaterally, clear to auscultation and percussion. No rales, rhonchi or wheezes noted. No increased work of breathing, no retractions or nasal flaring. Skin: Warm, dry with normal turgor. Normal color with no rashes, no lesions, and no evidence of cellulitis. MS/ Extremity: Pulses equal, no cyanosis. Neurovascular intact. Full, normal range of motion. Neuro: Awake and alert, GCS 15, oriented to person, place, time, and situation. Cranial nerves II-XII grossly intact. Motor strength 5/5 in all extremities. Sensory grossly intact. Cerebellar exam normal. Normal gait. 07:57 Abdomen/GI: Inspection: abdomen appears normal, Bowel sounds: normal, in all quadrants, Palpation: soft, in all quadrants, moderate abdominal tenderness, in the epigastric area. Vital Signs: 07:02 BP 115 / 79; Pulse 100; Resp 18; Temp 99.1(TE); Pulse Ox 98% on R/A; Weight 91.17 kg; hj Height 5 ft. 2 in. (157.48 cm); Pain 10/10; 08:00 BP 110 / 69; Pulse 89; Resp 17; Pulse Ox 98% on R/A; rb1 08:57 BP 111 / 76; Pulse 85; Resp 16; Pulse Ox 100% on R/A; rb1 07:02 Body Mass Index 36.76 (91.17 kg, 157.48 cm) hj MDM: 07:13 Patient medically screened. kb 08:01 Data reviewed: vital signs, nurses notes. Data interpreted: Pulse oximetry: on room air kb is 98 %. Interpretation: normal. 08:19 Counseling: I had a detailed discussion with the patient and/or guardian regarding: the kb historical points, exam findings, and any diagnostic results supporting the discharge/admit diagnosis, lab results, the need for outpatient follow up, a family practitioner, to return to the emergency department if symptoms worsen or persist or if there are any questions or concerns that arise at home. 11/26 07:21 Order name: Basic Metabolic Panel; Complete Time: 08:05 kb 11/26 07:21 Order name: CBC with Diff; Complete Time: 07:50 kb 11/26 07:21 Order name: Hepatic Function; Complete Time: 08:05 kb 11/26 07:21 Order name: Lipase; Complete Time: 08:05 kb 11/26 07:21 Order name: Magnesium; Complete Time: 08:05 kb 11/26 08:22 Order name: Urine Dipstick--Ancillary (enter results) bd 11/26 07:21 Order name: IV Saline Lock; Complete Time: 07:40 kb 11/26 07:21 Order name: Labs collected and sent; Complete Time: 07:40 kb Administered Medications: 07:57 Drug: NS 0.9% 1000 ml Route: IV; Rate: 1000 ml; Site: right antecubital; rb1 08:44 Follow up: IV Status: Completed infusion rb1 08:44 Drug: Potassium Chloride 10 mEq Route: PO; rb1 08:55 Follow up: Response: Medication administered at discharge. rb1 Disposition: 19:02 Co-signature as Attending Physician, Jr Benito MD. pkl Disposition: 11/26/18 08:20 Discharged to Home. Impression: Upper abdominal pain, unspecified. - Condition is Stable. - Discharge Instructions: Abdominal Pain, Adult, [id number]. - Medication Reconciliation Form, Thank You Letter, Antibiotic Education, Prescription Opioid Use, Family Work Release form. - Follow up: Emergency Department; When: As needed; Reason: Worsening of condition. Follow up: Private Physician; When: 2 - 3 days; Reason: Recheck today's complaints, Continuance of care, Re-evaluation by your physician. Signatures: Dispatcher [employer] EDYasmeen Enriquez, GRAY-C GRAY-Jr Hall MD MD pkl Tulio Chery RN RN hj Maggi Alcantara, RN RN rb1 Corrections: (The following items were deleted from the chart) 08:58 08:20 11/26/2018 08:20 Discharged to Home. Impression: Upper abdominal pain, rb1 unspecified. Condition is Stable. Forms are Medication Reconciliation Form, Thank You Letter, Antibiotic Education, Prescription Opioid Use. Follow up: Emergency Department; When: As needed; Reason: Worsening of condition. Follow up: Private Physician; When: 2 - 3 days; Reason: Recheck today's complaints, Continuance of care, Re-evaluation by your physician. kb
[2018-11-26] MEDS ORDERED: POTASSIUM CL SA 10 MEQ TAB PO ONE (08:51)
[2018-11-26 09:10] VITALS: TEMP 99.1
[2018-11-26 09:13] VITALS: BP 111/76; O2SAT 100
[2018-11-26 09:53] LABS: Urine Blood 3+ (NEG); Urine Glucose NEGATIVE (NEG); Urine Protein NEGATIVE (NEG); Urine Specific Gravity <1.005 (1.005-1.030); Urine pH 5.5 (5.0-7.0)
== END 2018-11-26 08:58 | disposition home or self-care (01) ==
LOC: ER 06:40
DX: R10.10 Upper abdominal pain, unspecified (principal); Z88.5 Allergy status to narcotic agent; Z88.0 Allergy status to penicillin
CPT/HCPCS: 36415; 80048; 80076; 81003; 83690; 83735; 85025; 96360; 99284; J7030

== ENCOUNTER 2018-12-07 19:33 | Emergency (ER) | payer OTHER, SELFPAY ==
--- OUTSIDE RECORDS SUMMARY | 2018-12-07 19:35 | XMS REPORT ---
:1980 [facility] [place] [address] [place] [id number] Care Team Providers Name Role Phone Unavailable Unavailable Unavailable Problems This patient has no known problems. Allergies, Adverse Reactions, Alerts This patient has no known allergies or adverse reactions. Medications This patient has no known medications.
--- NOTE | 2018-12-07 20:52 | ER ---
Nurse's Notes [facility] Name: Nyasia Houser Age: 38 yrs Sex: Female : 1980 Arrival Date: 12/07/2018 Time: 19:41 Bed 5 Private MD: Diagnosis: Gastro-esophageal reflux disease Presentation: 12/07 19:54 Presenting complaint: Patient states: "I think I might have Strep throat.". Transition jd3 of care: patient was not received from another setting of care. Onset of symptoms was December 06, 2018. Risk Assessment: Do you want to hurt yourself or someone else? Patient reports no desire to harm self or others. Initial Sepsis Screen: Does the patient meet any 2 criteria? No. Patient's initial sepsis screen is negative. Does the patient have a suspected source of infection? No. Patient's initial sepsis screen is negative. Care prior to arrival: None. 19:54 Method Of Arrival: Ambulatory jd3 19:54 Acuity: MELISSA 4 jd3 RUBBER DOWN: 19:55 LMP 11/18/2018 jd3 Historical: - Allergies: 19:58 Codeine; jd3 19:58 PENICILLINS; jd3 - Home Meds: 19:58 Prilosec Oral [Active]; jd3 - PMHx: 19:58 fatty liver; shingles; jd3 - PSHx: 19:58 Cholecystectomy; ovarian cyst removal; jd3 - Immunization history:: Adult Immunizations up to date. - Social history:: Smoking status: Patient/guardian denies using tobacco. - Ebola Screening: : Patient negative for fever greater than or equal to 101.5 degrees Fahrenheit, and additional compatible Ebola Virus Disease symptoms. Screenin:10 Abuse screen: Denies threats or abuse. Nutritional screening: No deficits noted. jd3 Tuberculosis screening: No symptoms or risk factors identified. Fall Risk Ambulatory Aid- None/Bed Rest/Nurse Assist (0 pts). Gait- Normal/Bed Rest/Wheelchair (0 pts) Mental Status- Oriented to own ability (0 pts). Total Segura Fall Scale indicates No Risk (0-24 pts). Assessment: 20:07 General: Appears in no apparent distress. uncomfortable, Behavior is calm, cooperative, jd3 appropriate for age. Pain: Complains of pain in head Quality of pain is described as aching. Neuro: Level of Consciousness is awake, alert, obeys commands, Oriented to person, place, time, situation, Appropriate for age. Cardiovascular: Capillary refill < 3 seconds Patient's skin is warm and dry. Respiratory: Airway is patent Respiratory effort is even, unlabored, Respiratory pattern is regular, symmetrical. GI: No signs and/or symptoms were reported involving the gastrointestinal system. : No signs and/or symptoms were reported regarding the genitourinary system. EENT: Throat is reddened has enlarged tonsils. Derm: Skin is intact, Skin is dry, Skin is normal, Skin temperature is warm. Musculoskeletal: Circulation, motion, and sensation intact. Range of motion: intact in all extremities. 21:09 Reassessment: Patient appears in no apparent distress at this time. Patient and/or jd3 family updated on plan of care and expected duration. Pain level reassessed. Patient is alert, oriented x 3, equal unlabored respirations, skin warm/dry/pink. Vital Signs: 19:55 BP 111 / 76; Pulse 84; Resp 18 S; Temp 98.3(O); Pulse Ox 97% on R/A; Weight 89.81 kg jd3 (R); Height 5 ft. 2 in. (157.48 cm) (R); Pain 6/10; 21:10 BP 107 / 76; Pulse 85; Resp 16 S; Pulse Ox 98% on R/A; jd3 19:55 Body Mass Index 36.21 (89.81 kg, 157.48 cm) jd3 ED Course: 19:41 Patient arrived in ED. mr 19:43 Arianna Mondragon, GILBERTO is Primary Nurse. ak1 19:43 [facility]adi Dupree [facility]C [facility]. snw 19:43 Roberto Andersen MD is Attending Physician. snw 19:55 Triage completed. jd3 19:57 Arm band placed on. jd3 20:10 Patient has correct armband on for positive identification. Placed in gown. Bed in low jd3 position. Call light in reach. Side rails up X 1. 21:10 No provider procedures requiring assistance completed. Patient did not have IV access jd3 during this emergency room visit. Administered Medications: No medications were administered Outcome: 20:51 Discharge ordered by . snw 21:10 Discharged to home ambulatory, with family. jd3 21:10 Condition: stable 21:10 Discharge instructions given to patient, family, Instructed on discharge instructions, follow up and referral plans. Demonstrated understanding of instructions, follow-up care. 21:12 Patient left the ED. jd3 Signatures: Yadi Dupree, EDUCATION OFFICER-C EDUCATION OFFICER-Csnw Mitali Murray WillieelviaArianna, RN RN ak1 Bal Wick RN RN jd3
--- NOTE | 2018-12-07 20:52 | EDPHYS ---
Physician Documentation [facility] Name: Nyasia Houser Age: 38 yrs Sex: Female : 1980 Arrival Date: 12/07/2018 Time: 19:41 Bed 5 Private MD: ED Physician Roberto Andersen HPI: 12/07 19:53 This 38 yrs old Female presents to ER via Unassigned with complaints of Sore snw Throat, Ear Pain, Congestion. 19:53 The patient presents with sore throat. The patient describes throat pain as dry, raw. snw Onset: The symptoms/episode began/occurred suddenly, 2 day(s) ago, and became persistent. Severity of symptoms: At their worst the symptoms were moderate. Associated signs and symptoms: The patient has no apparent associated signs or symptoms. The patient has experienced similar episodes in the past. pt has been seen her 3 other times this month. Pt states she followed up with GI and will have upper GI soon. Taking prilosec x 16 days. 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 - Social history:: Smoking status: Patient/guardian denies using tobacco. - Ebola Screening: : Patient negative for fever greater than or equal to 101.5 degrees Fahrenheit, and additional compatible Ebola Virus Disease symptoms. ROS: 19:52 Constitutional: Negative for fever, chills, and weight loss, Eyes: Negative for injury, snw pain, redness, and discharge, Neck: Negative for injury, pain, and swelling, Cardiovascular: Negative for chest pain, palpitations, and edema, Respiratory: Negative for shortness of breath, cough, wheezing, and pleuritic chest pain, Abdomen/GI: Negative for abdominal pain, nausea, vomiting, diarrhea, and constipation, Back: Negative for injury and pain, : Negative for injury, bleeding, discharge, and swelling, MS/Extremity: Negative for injury and deformity, Skin: Negative for injury, rash, and discoloration, Neuro: Negative for headache, weakness, numbness, tingling, and seizure, Psych: Negative for depression, anxiety, suicide ideation, homicidal ideation, and hallucinations. 19:52 ENT: Positive for sore throat. Exam: 19:52 Constitutional: This is a well developed, well nourished patient who is awake, alert, snw and in no acute distress. Head/Face: Normocephalic, atraumatic. Eyes: Pupils equal round and reactive to light, extra-ocular motions intact. Lids and lashes normal. Conjunctiva and sclera are non-icteric and not injected. Cornea within normal limits. Periorbital areas with no swelling, redness, or edema. Neck: Trachea midline, no thyromegaly or masses palpated, and no cervical lymphadenopathy. Supple, full range of motion without nuchal rigidity, or vertebral point tenderness. No Meningismus. Chest/axilla: Normal chest wall appearance and motion. Nontender with no deformity. No lesions are appreciated. Cardiovascular: Regular rate and rhythm with a normal S1 and S2. No gallops, murmurs, or rubs. Normal PMI, no JVD. No pulse deficits. Respiratory: Lungs have equal breath sounds bilaterally, clear to auscultation and percussion. No rales, rhonchi or wheezes noted. No increased work of breathing, no retractions or nasal flaring. Abdomen/GI: Soft, non-tender, with normal bowel sounds. No distension or tympany. No guarding or rebound. No evidence of tenderness throughout. Back: No spinal tenderness. No costovertebral tenderness. Full range of motion. Skin: Warm, dry with normal turgor. Normal color with no rashes, no lesions, and no evidence of cellulitis. MS/ Extremity: Pulses equal, no cyanosis. Neurovascular intact. Full, normal range of motion. Neuro: Awake and alert, GCS 15, oriented to person, place, time, and situation. Cranial nerves II-XII grossly intact. Motor strength 5/5 in all extremities. Sensory grossly intact. Cerebellar exam normal. Normal gait. Psych: Awake, alert, with orientation to person, place and time. Behavior, mood, and affect are within normal limits. 19:52 ENT: Nares patent. No nasal discharge, no septal abnormalities noted. Tympanic membranes are normal and external auditory canals are clear. Oropharynx with no redness, swelling, or masses, exudates, or evidence of obstruction, uvula midline. Mucous membranes moist. Vital Signs: 19:55 BP 111 / 76; Pulse 84; Resp 18 S; Temp 98.3(O); Pulse Ox 97% on R/A; Weight 89.81 kg jd3 (R); Height 5 ft. 2 in. (157.48 cm) (R); Pain 6/10; 21:10 BP 107 / 76; Pulse 85; Resp 16 S; Pulse Ox 98% on R/A; jd3 19:55 Body Mass Index 36.21 (89.81 kg, 157.48 cm) jd3 MDM: 19:44 Patient medically screened. corby 20:53 Data reviewed: vital signs, nurses notes. Data interpreted: Pulse oximetry: on room air snw is 97 %. Interpretation: normal. Counseling: I had a detailed discussion with the patient and/or guardian regarding: the historical points, exam findings, and any diagnostic results supporting the discharge/admit diagnosis, lab results, the need for outpatient follow up, to return to the emergency department if symptoms worsen or persist or if there are any questions or concerns that arise at home. Special discussion: Based on the history and exam findings, there is no indication for further emergent testing or inpatient evaluation. I discussed with the patient/guardian the need to see the agricultural commodities grader for further evaluation of the symptoms. 12/07 19:55 Order name: Strep; Complete Time: 20:49 snw 12/07 20:47 Order name: Throat Culture EDMS Administered Medications: No medications were administered Disposition: 12/07/18 20:51 Discharged to Home. Impression: Gastro-esophageal reflux disease. - Condition is Stable. - Discharge Instructions: Gastroesophageal Reflux Disease, Adult. - Medication Reconciliation Form, Thank You Letter, Antibiotic Education, Prescription Opioid Use form. - Follow up: Private Physician; When: 2 - 3 days; Reason: Recheck today's complaints, Continuance of care, Re-evaluation by your physician. Follow up: Emergency Department; When: As needed; Reason: Worsening of condition. Addendum: 12/10/2018 11:07 Co-signature as Attending Physician, Roberto Andersen MD I agree with the assessment and c frost plan of care. Signatures: Dispatcher [employer] Roberto Ceja MD MD cha Therrien, Shelly, COSTUMED CHARACTER-C COSTUMED CHARACTER-Karolinew Bal Wick, RN RN jd3 Corrections: (The following items were deleted from the chart) 12/07 21:12 20:51 12/07/2018 20:51 Discharged to Home. Impression: Gastro-esophageal reflux jd3 disease. Condition is Stable. Forms are Medication Reconciliation Form, Thank You Letter, Antibiotic Education, Prescription Opioid Use. Follow up: Private Physician; When: 2 - 3 days; Reason: Recheck today's complaints, Continuance of care, Re-evaluation by your physician. Follow up: Emergency Department; When: As needed; Reason: Worsening of condition. snw
[2018-12-07 21:20] VITALS: BP 107/76; TEMP 98.3; O2SAT 98
== END 2018-12-07 21:12 | disposition home or self-care (01) ==
LOC: ER 19:33
DX: K21.9 Gastro-esophageal reflux disease without esophagitis (principal); Z88.5 Allergy status to narcotic agent; Z88.0 Allergy status to penicillin
CPT/HCPCS: 87070; 87081; 99281

== ENCOUNTER 2019-02-04 19:10 | Emergency (ER) | payer OTHER ==
[2019-02-04 19:50] LABS: Absolute Lymphocytes (CBC) 1.6 K/uL (0.7-4.9); Basophils % 0.8 % (0-1.3); Eosinophils % 2.9 % (0-4.4); Lymphocytes % 20.4 % (15.3-44.8); MPV 8.2 fL (7.6-11.3); Monocytes % 7.1 % (3.3-12.3); RBC Red Blood Cell Count 4.77 M/uL (3.86-4.86)
[2019-02-04] MEDS ORDERED: NA CHLORIDE 0.9% 1,000 ML ONE (20:05)
[2019-02-04 20:08] LABS: Bilirubin Direct 0.1 mg/dL (0-0.2); Bilirubin Total 0.5 mg/dL (0.2-1.0); Potassium 3.6 mmol/L (3.5-5.1); Protein, Total 8.5 g/dL (6.4-8.2)
[2019-02-04 20:38] LABS: Urine Blood TRACE (NEG); Urine Glucose NEGATIVE (NEG); Urine Protein NEGATIVE (NEG); Urine Specific Gravity 1.015 (1.005-1.030)
[2019-02-04] MEDS ORDERED: HYDROMORPHONE HCL 1 MG/ML INJ ONE (20:47)
[2019-02-04] MEDS ORDERED: ONDANSETRON 4 MG/2 ML VIAL ONE (20:47)
--- NOTE | 2019-02-04 22:27 | ER ---
Nurse's Notes [facility] Name: Nyasia Houser Age: 38 yrs Sex: Female : 1980 Arrival Date: 02/04/2019 Time: 19:14 Bed 13 Private MD: Diagnosis: Abdominal tenderness;Gastritis, unspecified;Vomiting;Diarrhea, unspecified Presentation: 02/04 19:17 Presenting complaint: Patient states: "I've been taking Zantac, on Sunday I was suppose aj1 to get a colonoscopy done, but I couldn't take the prep because I threw up, but then I had diarrhea for the next 2 days. I drank a lot of fluids but I'm still feeling light-headed. Now I'm throwing up again". Transition of care: patient was not received from another setting of care. Onset of symptoms was February 04, 2019. Risk Assessment: Do you want to hurt yourself or someone else? Patient reports no desire to harm self or others. Initial Sepsis Screen: Does the patient meet any 2 criteria? No. Patient's initial sepsis screen is negative. Does the patient have a suspected source of infection? No. Patient's initial sepsis screen is negative. Care prior to arrival: None. 19:17 Method Of Arrival: Ambulatory aj 19:17 Acuity: MELISSA 3 aj1 Triage Assessment: 19:20 General: Appears in no apparent distress. uncomfortable, Behavior is calm, cooperative, aj1 appropriate for age. Pain: Complains of pain in epigastric area Pain currently is 9 out of 10 on a pain scale. Neuro: Level of Consciousness is awake, alert, obeys commands. Cardiovascular: Patient's skin is warm and dry. Respiratory: Airway is patent Trachea Respiratory effort is even, unlabored, Respiratory pattern is regular, symmetrical. GI: Reports upper abdominal pain, diarrhea, nausea, vomiting. 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 - Social history:: Smoking status: Patient/guardian denies using tobacco. - Ebola Screening: : Patient denies travel to an Ebola-affected area in the 21 days before illness onset. Screenin:33 Abuse screen: Denies threats or abuse. Nutritional screening: No deficits noted. jb4 Tuberculosis screening: No symptoms or risk factors identified. Fall Risk IV access (20 points). Assessment: 19:33 General: Appears in no apparent distress. uncomfortable, Behavior is calm, cooperative, jb4 appropriate for age. Pain: Complains of pain in epigastric area and right upper quadrant Pain does not radiate. Pain currently is 9 out of 10 on a pain scale. Quality of pain is described as aching, crampy, Pain began 01/31/19 Is continuous. Neuro: Level of Consciousness is awake, alert, obeys commands, Oriented to person, place, time, situation. Cardiovascular: Patient's skin is warm and dry. Respiratory: Airway is patent Respiratory effort is even, unlabored, Respiratory pattern is regular, symmetrical. GI: Abdomen is non-distended, obese, Bowel sounds present X 4 quads. Abd is soft X 4 quads Abd is non tender in suprapubic area, left upper quadrant and left lower quadrant Abdomen is tender to palpation in epigastric area, umbilical area, right upper quadrant and right lower quadrant Reports diarrhea, nausea, vomiting. : No signs and/or symptoms were reported regarding the genitourinary system. EENT: No signs and/or symptoms were reported regarding the EENT system. Derm: Skin is intact, Skin is pink, warm \\T\\ dry. Musculoskeletal: Circulation, motion, and sensation intact. 20:30 Reassessment: Patient appears in no apparent distress at this time. Patient and/or jb4 family updated on plan of care and expected duration. Pain level reassessed. Patient is alert, oriented x 3, equal unlabored respirations, skin warm/dry/pink. 21:19 Reassessment: Patient appears in no apparent distress at this time. Patient and/or jb4 family updated on plan of care and expected duration. Pain level reassessed. Patient is alert, oriented x 3, equal unlabored respirations, skin warm/dry/pink. Ct notified pt finished contrast. 22:40 Reassessment: Patient appears in no apparent distress at this time. Patient and/or jb4 family updated on plan of care and expected duration. Pain level reassessed. Patient is alert, oriented x 3, equal unlabored respirations, skin warm/dry/pink. Pt left ED ambulatory w/ steady gait w/ family, verbalized understanding of d/c and follow up instructions. Vital Signs: 19:20 BP 118 / 85; Pulse 90; Resp 18; Temp 97.2; Pulse Ox 100% on R/A; Weight 87.54 kg (R); aj1 Height 5 ft. 2 in. (157.48 cm) (R); 20:30 BP 102 / 87; Pulse 83; Resp 16; Pulse Ox 99% on R/A; jb4 21:00 BP 108 / 78; Pulse 76; Resp 16; Pulse Ox 100% on R/A; jb4 22:30 BP 114 / 72; Pulse 88; Resp 16; Pulse Ox 98% on R/A; jb4 19:20 Body Mass Index 35.30 (87.54 kg, 157.48 cm) aj1 ED Course: 19:14 Patient arrived in ED. es 19:19 Triage completed. aj1 19:20 Arm band placed on Patient placed in an exam room. aj1 19:28 Bronson Carey, RN is Primary Nurse. jb4 19:33 Patient has correct armband on for positive identification. Bed in low position. Call jb4 light in reach. Side rails up X 1. Pulse ox on. NIBP on. 19:35 Roberto Andersen MD is Attending Physician. corby 19:40 Initial lab(s) drawn, by oh, sent to lab. Urine collected:. Inserted saline lock: 20 jb4 gauge in right antecubital area, using aseptic technique. Blood collected. 21:[address] em2 21:33 CT completed. Patient tolerated procedure well. Patient moved back from CT. em2 21:48 CT Abd/Pelvis - PO and IV Contrast In Process Unspecified. EDMS 22:26 Boston Devlin MD is Referral Physician. corby 22:40 No provider procedures requiring assistance completed. IV discontinued, intact, jb4 bleeding controlled, No redness/swelling at site. Administered Medications: 19:53 Drug: NS 0.9% 1000 ml Route: IV; Rate: 1 bolus; Site: right antecubital; jb4 20:45 Drug: Zofran 4 mg Route: IVP; Site: right antecubital; jb4 21:15 Follow up: Response: No adverse reaction; Nausea is decreased jb4 20:47 Drug: Dilaudid 1 mg Route: IVP; Site: right antecubital; jb4 21:15 Follow up: Response: No adverse reaction; Pain is decreased jb4 Outcome: 22:26 Discharge ordered by . corby 22:40 Discharged to home ambulatory, with family. jb4 22:40 Condition: stable 22:40 Discharge instructions given to patient, Instructed on discharge instructions, follow up and referral plans. medication usage, Demonstrated understanding of instructions, follow-up care, medications, Prescriptions given X 2. 22:42 Patient left the ED. jb4 Signatures: Dispatcher [employer] Anel Taylor RN RN aj1 Roberto Andersen MD MD cha Salyer, Gary Alfaro 2 Bronson Carey RN RN jb4
--- NOTE | 2019-02-04 22:27 | EDPHYS ---
Physician Documentation [facility] Name: Nyasia Houser Age: 38 yrs Sex: Female : 1980 Arrival Date: 02/04/2019 Time: 19:14 Bed 13 Private MD: ED Physician Roberto Andersen HPI: 02/04 20:26 This 38 yrs old Female presents to ER via Ambulatory with complaints of corby Nausea/Vomiting, Headache, Diarrhea, Dizziness. 20:26 The patient presents to the emergency department with nausea, vomiting, diarrhea, corby abdominal pain, of the right upper quadrant and right lower quadrant. Onset: The symptoms/episode began/occurred 2 day(s) ago. Possible causes: unknown. The symptoms are aggravated by. Associated signs and symptoms: The patient has no apparent associated signs or symptoms. Severity of symptoms: At their worst the symptoms were. The patient has not experienced similar symptoms in the past. 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 - Social history:: Smoking status: Patient/guardian denies using tobacco. - Ebola Screening: : Patient denies travel to an Ebola-affected area in the 21 days before illness onset. ROS: 20:26 Constitutional: Negative for fever, chills, and weight loss, Eyes: Negative for injury, corby pain, redness, and discharge, ENT: Negative for injury, pain, and discharge, Neck: Negative for injury, pain, and swelling, Cardiovascular: Negative for chest pain, palpitations, and edema, Respiratory: Negative for shortness of breath, cough, wheezing, and pleuritic chest pain, Back: Negative for injury and pain, : Negative for injury, bleeding, discharge, and swelling, MS/Extremity: Negative for injury and deformity, Skin: Negative for injury, rash, and discoloration, Neuro: Negative for headache, weakness, numbness, tingling, and seizure, Psych: Negative for depression, anxiety, suicide ideation, homicidal ideation, and hallucinations, Allergy/Immunology: Negative for hives, rash, and allergies, Endocrine: Negative for neck swelling, polydipsia, polyuria, polyphagia, and marked weight changes, Hematologic/Lymphatic: Negative for swollen nodes, abnormal bleeding, and unusual bruising. 20:26 Abdomen/GI: Positive for abdominal pain, nausea and vomiting, diarrhea, of the epigastric area, right upper quadrant and right lower quadrant. Exam: 20:26 Constitutional: This is a well developed, well nourished patient who is awake, alert, corby and in no acute distress. Head/Face: Normocephalic, atraumatic. Eyes: Pupils equal round and reactive to light, extra-ocular motions intact. Lids and lashes normal. Conjunctiva and sclera are non-icteric and not injected. Cornea within normal limits. Periorbital areas with no swelling, redness, or edema. ENT: Nares patent. No nasal discharge, no septal abnormalities noted. Tympanic membranes are normal and external auditory canals are clear. Oropharynx with no redness, swelling, or masses, exudates, or evidence of obstruction, uvula midline. Mucous membranes moist. Neck: Trachea midline, no thyromegaly or masses palpated, and no cervical lymphadenopathy. Supple, full range of motion without nuchal rigidity, or vertebral point tenderness. No Meningismus. Chest/axilla: Normal chest wall appearance and motion. Nontender with no deformity. No lesions are appreciated. Cardiovascular: Regular rate and rhythm with a normal S1 and S2. No gallops, murmurs, or rubs. Normal PMI, no JVD. No pulse deficits. Respiratory: Lungs have equal breath sounds bilaterally, clear to auscultation and percussion. No rales, rhonchi or wheezes noted. No increased work of breathing, no retractions or nasal flaring. Back: No spinal tenderness. No costovertebral tenderness. Full range of motion. Skin: Warm, dry with normal turgor. Normal color with no rashes, no lesions, and no evidence of cellulitis. MS/ Extremity: Pulses equal, no cyanosis. Neurovascular intact. Full, normal range of motion. Neuro: Awake and alert, GCS 15, oriented to person, place, time, and situation. Cranial nerves II-XII grossly intact. Motor strength 5/5 in all extremities. Sensory grossly intact. Cerebellar exam normal. Normal gait. Psych: Awake, alert, with orientation to person, place and time. Behavior, mood, and affect are within normal limits. 20:26 Abdomen/GI: Inspection: abdomen appears normal, Bowel sounds: normal, Palpation: moderate abdominal tenderness, Liver: no appreciated palpable abnormalities, Hernia: not appreciated. Vital Signs: 19:20 BP 118 / 85; Pulse 90; Resp 18; Temp 97.2; Pulse Ox 100% on R/A; Weight 87.54 kg (R); aj1 Height 5 ft. 2 in. (157.48 cm) (R); 20:30 BP 102 / 87; Pulse 83; Resp 16; Pulse Ox 99% on R/A; jb4 21:00 BP 108 / 78; Pulse 76; Resp 16; Pulse Ox 100% on R/A; jb4 22:30 BP 114 / 72; Pulse 88; Resp 16; Pulse Ox 98% on R/A; jb4 19:20 Body Mass Index 35.30 (87.54 kg, 157.48 cm) aj1 MDM: 19:35 Patient medically screened. [facility] 20:28 Data reviewed: vital signs, nurses notes, lab test result(s), radiologic studies, CT [facility] scan. 02/04 19:37 Order name: Basic Metabolic Panel [facility] 02/04 19:37 Order name: CBC with Diff; Complete Time: 20:26 [facility] 02/04 19:37 Order name: Creatinine for Radiology; Complete Time: 21:07 [facility] 02/04 19:37 Order name: Hepatic Function; Complete Time: 20:26 [facility] 02/04 19:37 Order name: Lipase; Complete Time: 20:26 [facility] 02/04 19:37 Order name: Urine Culture [facility] 02/04 19:37 Order name: IV Saline Lock; Complete Time: 19:40 [facility] 02/04 19:38 Order name: Basic Metabolic Panel; Complete Time: 20:26 [facility] 02/04 19:50 Order name: Urine Dipstick--Ancillary (enter results); Complete Time: 21:07 [facility] 02/04 19:50 Order name: Urine --Ancillary (enter results); Complete Time: 21:07 [facility] 02/04 20:26 Order name: CT Abd/Pelvis - PO and IV Contrast [facility] 02/04 19:37 Order name: Labs collected and sent; Complete Time: 19:51 [facility] 02/04 19:37 Order name: Urine Dipstick-Ancillary (obtain specimen); Complete Time: 19:51 [facility] 02/04 19:37 Order name: Urine Test (obtain specimen); Complete Time: 19:51 [facility] Administered Medications: 19:53 Drug: NS 0.9% 1000 ml Route: IV; Rate: 1 bolus; Site: right antecubital; jb4 20:45 Drug: Zofran 4 mg Route: IVP; Site: right antecubital; jb4 21:15 Follow up: Response: No adverse reaction; Nausea is decreased jb4 20:47 Drug: Dilaudid 1 mg Route: IVP; Site: right antecubital; jb4 21:15 Follow up: Response: No adverse reaction; Pain is decreased jb4 Disposition: 02/04/19 22:26 Discharged to Home. Impression: Abdominal tenderness, Gastritis, unspecified, Vomiting, Diarrhea, unspecified. - Condition is Stable. - Discharge Instructions: Abdominal Pain, Adult, Food Choices to Help Relieve Diarrhea, Adult, Diarrhea, Adult, Nausea and Vomiting, Adult, Nausea and Vomiting, Adult, [id number], Abdominal Pain, Adult, [id number], Diarrhea, Adult, [id number]. - Prescriptions for Bentyl 20 mg Oral Tablet - take 1 tablet by ORAL route every 6 hours As needed; 20 tablet. Pepcid 20 mg Oral Tablet - take 1 tablet by ORAL route every 12 hours for 10 days; 20 tablet. Zofran 4 mg Oral Tablet - take 1 tablet by ORAL route every 12 hours As needed; 20 tablet. - Medication Reconciliation Form, Thank You Letter, Antibiotic Education, Prescription Opioid Use form. - Follow up: Private Physician; When: 2 - 3 days; Reason: Recheck today's complaints, Continuance of care, Re-evaluation by your physician. Follow up: Boston Devlin; When: 2 - 3 days; Reason: Recheck today's complaints, Re-evaluation by your physician. - Problem is new. - Symptoms have improved. Signatures: Dispatcher [employer] Anel Taylor, RN RN aj1 Roberto Andersen MD MD cha Bryson, James, RN RN jb4 Corrections: (The following items were deleted from the chart) 22:42 22:26 02/04/2019 22:26 Discharged to Home. Impression: Abdominal tenderness; Gastritis, jb4 unspecified; Vomiting; Diarrhea, unspecified. Condition is Stable. Discharge Instructions: Abdominal Pain, Adult, Food Choices to Help Relieve Diarrhea, Adult, Diarrhea, Adult, Nausea and Vomiting, Adult, Nausea and Vomiting, Adult, [id number], Abdominal Pain, Adult, [id number], Diarrhea, Adult, Csjp-ys-Juug. Prescriptions for Bentyl 20 mg Oral Tablet - take 1 tablet by ORAL route every 6 hours As needed; 20 tablet, Pepcid 20 mg Oral Tablet - take 1 tablet by ORAL route every 12 hours for 10 days; 20 tablet, Zofran 4 mg Oral Tablet - take 1 tablet by ORAL route every 12 hours As needed; 20 tablet. and Forms are Medication Reconciliation Form, Thank You Letter, Antibiotic Education, Prescription Opioid Use. Follow up: Private Physician; When: 2 - 3 days; Reason: Recheck today's complaints, Continuance of care, Re-evaluation by your physician. Follow up: Boston Devlin; When: 2 - 3 days; Reason: Recheck today's complaints, Re-evaluation by your physician. Problem is new. Symptoms have improved. corby
[2019-02-04 23:45] VITALS: TEMP 97.2
[2019-02-04 23:47] VITALS: BP 108/78; O2SAT 100
--- NOTE | 2019-02-05 11:17 | RAD REPORT ---
EXAM DESCRIPTION: CT ABDOMEN AND PELVIS WITH CONTRAST CLINICAL HISTORY: Generalized abdominal pain COMPARISON: 09/03/2018 TECHNIQUE: CT of the abdomen and pelvis performed following IV administration of iodinated contrast. DLP: 2013.7 mGycm FINDINGS: Lung Bases: The visualized lung bases are clear. Bones: No destructive bone lesions identified. Abdomen: Liver: The liver has normal size and decreased density. No intrahepatic mass or biliary dilatation. Gallbladder: Prior cholecystectomy Spleen, Pancreas, and Adrenal Glands: The spleen, pancreas, and adrenal glands are unremarkable. Kidneys: The kidneys have normal size and contour without evidence of solid mass or hydronephrosis. Vasculature: Aortoiliac atherosclerosis. IVC is unremarkable. The portal vein is patent. The proxim al visceral and renal arteries are patent. Stomach: The stomach and duodenum have normal course. Other: No free intraperitoneal air. No free fluid or lymphadenopathy. Pelvis: Bladder: Urinary bladder is unremarkable. Bowel: No dilated loops of large or small bowel. Appendix: Normal appendix. Pelvis: Left ovarian dermoid is stable measuring approximately 1.8 x 2.5 cm IUD in the uterus. IMPRESSION: 1. No acute inflammatory or obstructive process identified. 2. 2.5 cm dermoid ovarian cyst. Recommend pelvic MRI w/IV contrast. If not surgically resected, pelvi c US follow-up annually. Reference: J Am Emmanuel Radiol 2013;10:[id number] This exam was performed according to our departmental dose-optimization program, which includes autom ated exposure control, adjustment of the mA and/or kV according to patient size and/or use of iterati ve reconstruction technique. Electronically signed by: Walt Arzate 02/04/2019 10:15 PM CDT Due to temporary technical issues with the PACS/Fluency reporting system, reports are being signed by the in house radiologist as a courtesy to ensure prompt reporting. The interpreting radiologist is f ully responsible for the content of the report.
== END 2019-02-04 22:42 | disposition home or self-care (01) ==
LOC: ER 19:10
DX: K29.70 Gastritis, unspecified, without bleeding (principal); R10.819 Abdominal tenderness, unspecified site; Z88.0 Allergy status to penicillin; Z88.5 Allergy status to narcotic agent
CPT/HCPCS: 36415; 74177; 80048; 80076; 81003; 81025; 83690; 85025; 87086; 87088; 96374; 96375; 99284; J1170; J2405; J7030; Q9967